=== PATIENT | female | born 1960 | race Caucasian/White ===

== ENCOUNTER 2021-11-15 18:06 | Emergency (ER) | payer OTHER ==
--- OUTSIDE RECORDS SUMMARY | 2021-11-15 18:10 | XMS REPORT | Continuity of Care Document ---
:[address] [facility] t Address [address] [place] [address] Dr. Valenzuela [address] [place] [address] Care Team Providers Name Role Phone Fadumo Mathias Attending Clinician Unavailable Amanda Knight Attending Clinician Unavailable Samia Calderon Admitting Clinician Unavailable Physician, Primary or Family Admitting Clinician Unavailabl e UNDEFINED Admitting Clinician Unavailable Payers Payer Name Policy Type Policy Number Effective Date Expiration Date S ource Advance Directives Directive Decision Effective Date Termination Date Comments Sour ce Yes N/A [facility] Problems Condition Condition Condition Status Onset Resolution Last Treating Co mments Source Name Details Category Date Date Treatment Clinician Date Encounter Encounter [id number] Active 2020-05-04 for for 05-04 09:12:48 observatio observatio 00:00: n for n for 00 other other suspected suspected diseases diseases and and conditions conditions ruled out ruled out (Z03.89)On set: 0 Allergies, Adverse Reactions, Alerts Allergy Allergy Status Severity Reaction(s) Onset Inactive Treating Comm ents Source Name Type Date Date Clinician celecoxi DA Active [place] [facility] 08-[facility] 00:00: [address] naproxen DA Active [place] [facility] 08-17 00:00: [address] No Known DA Active [facility] Allergie 01-01 00:00: [address] aspirin Allergy Active Other Celebrex Allergy Active Other naproxen Allergy Active Other ibuprofe Allergy Active N & V n Social History Smoking Status Start Date Stop Date Source Tobacco smoking consumption [facility] unknown Medications Ordered Filled Start Stop Current Ordering Indication Dosage Frequency Signature Comments Components Source Medication Medication Date Date Medication? Clinician (SIG) Name Name Melatonin* 2019- Yes [id number] 3mg Melatonin* 05-06190 ; 3 mg 10:41: PO/By 00 mouth for sleep Take three (3) pills at bedtimeSta rt: 0Ordered: 0Shaan Suttonent DULoxetine* 2020-0 Yes [id number] 60mg DULoxetine 05-05190 *; 60 mg 12:20: PO/By 00 mouth for mood Take one (1) pill in the morningSta rt: 0Ordered: 0Antonia Munira Mayuricharleyamanda Prazosin* Yes [id number] 1mg Prazosin*; 05-05 1 mg PO/By 12:03: mouth for 00 nightmares Take one (1) pill at bedtimeSta rt: 0Ordered: 0Shaan Sutton ARIPiprazol 2019- Yes [id number] 5mg ARIPiprazo e* 05-05 le*; 5 mg 12:03: PO/By 00 mouth for mood Take one (1) pill in the morningSta rt: 0Ordered: 0Shaan Sutton nttoyin HydrOXYzine 2019- Yes [id number] 50mg HydrOXYzin NTE 100mg 05-05190 e; 50 mg in 24 10:51: PO PRN hours 00 qam&qhs for Anxiety NTE 100mg in 24 hours RoutineSta rt: 0Ordered: 0Shaan Sutton nttoyinComme nts: NTE 100mg in 24 hours Milk of 2020-0 Yes [id number] 30ml Milk of NTE 120 Magnesia 05-01190 Magnesia; mL in 24 14:09: 30 ml PO hours 00 PRN q4hr for Constipati on NTE 120 mL in 24 hours RoutineSta rt: 0Ordered: 0Munira Knight ments: NTE 120 mL in 24 hours Nicorette 2019- Yes [id number] 2mg Nicorette NTE 12 Gum 05-01 368692 Gum; 2 mg pieces in 14:09: PO PRN Q1H 24 hours 00 for Nicotine cravings NTE 12 pieces in 24 hours RoutineSta rt: 0Ordered: 0Munira Knight ments: NTE 12 pieces in 24 hours Flu Vaccine Yes [id number] .5ml Flu This - ADULT 05-01 [id number] Vaccine - medicatio 14:08: ADULT; 0.5 n is to 00 ml IM be Daily for administe Flu red under prevention consent This of the medication patient is to be and is administer ONLY ed under available consent of between the May through and is October ONLY (during available the flu between season). May through October (during the flu season). RoutineSta rt: 0Ordered: 0Munira Knight ments: This medication is to be administer ed under consent of the patient and is ONLY available between May through October (during the flu season). Medications No Medication Treviño rris excluded/no s County t available excluded/n Ps ychia ot tric available Ctr Procedures This patient has no known procedures. Plan of Care Planned Activity Planned Date Details Comments Source Diagnostic Test Pending 2020-05-06 10:41:00 Discharge Patient [code = DischargePatient] Diagnostic Test Pending 2020-05-05 14:13:00 Vital Signs - Routine [code = VitalSigns-Routine] Diagnostic Test Pending 2020-05-04 12:03:00 Management of Emotions [code = ManagementofEmotions] Diagnostic Test Pending 2020-05-04 12:03:00 Mgmt of Mental Illness (On Unit) [code = MgmtofMentalIllness(OnUni t)] Diagnostic Test Pending 2020-05-04 12:03:00 Spirituality [code = Spirituality] Diagnostic Test Pending 2020-05-04 12:03:00 Therapeutic Recreation [code = TherapeuticRecreation] Diagnostic Test Pending 2020-05-04 12:03:00 Substance Use Group 3B [code = RewcornejLrsTzihh2I] Diagnostic Test Pending 2020-05-01 14:29:00 Brief Individual Intervention - Adult [code = BriefIndividualInterventi on-Adult] Diagnostic Test Pending 2020-05-01 14:10:00 Special Observations [code = SpecialObservations] Diagnostic Test Pending 2020-05-01 14:08:00 Cardiac Diet/AHA (low fat/2g Na) [code = CardiacDiet/AHA(lowfat/2g Na)] Diagnostic Test Pending 2020-05-01 14:08:00 Assess and involve in group therapy [code = Assessandinvolveingroupth erapy] Encounters Start End Encounter Admission Attending Care Care Encounter Source Date/Time Date/Time Type Type Clinicians Facility Department ID 2020-04-28 Inpatient [facility]CA[facility] SWATI [id number] [facility] 21:37:00 [id number] [facility] 2021-08-17 2021-08-17 Emergency [facility] [id number] [facility] 14:48:00 18:15:00 55 [facility] 2021-08-17 2021-08-17 Emergency EM Rui Mathias [facility]CA[facility] SWATI [id number] [facility] 14:48:00 18:15:00 [id number] [facility] 2020-05-01 2020-05-06 Inpatient Queenie Knight [facility]-3[facility]-61- [id number] [facility] 13:32:00 13:13:00 [facility] Baer [facility] 2019-10-01 2019-10-01 Outpatient [facility] [id number] [facility] 00:00:00 00:00:00 Health 2019-09-27 2019-09-27 Outpatient [facility] [id number] [facility] 00:00:00 00:00:00 Health 2019-09-24 2019-09-24 Outpatient [facility] [id number] [facility] 00:00:00 00:00:00 Health 2019-08-20 2019-08-20 Outpatient [facility] [id number] [facility] 00:00:00 00:00:00 Health 2019-08-13 2019-08-13 Outpatient [facility] [id number] [facility] 00:00:00 00:00:00 Health 2019-08-13 2019-08-13 Outpatient [facility] [id number] [place] 00:00:00 00:00:00 [facility] 2019-08-02 2019-08-02 Outpatient [facility] [id number] [place] 00:00:00 00:00:00 [facility] 2019-07-23 2019-07-23 Emergency E [facility] 7501 [facility] 05:55:00 05:55:00 2019-07-04 2019-07-04 Outpatient [facility] [id number] [place] 00:00:00 00:00:00 [facility] 2019-07-02 2019-07-02 Outpatient [facility] [id number] [place] 00:00:00 00:00:00 [facility] 2019-05-22 2019-05-22 Outpatient [facility] [id number] [place] 00:00:00 00:00:00 [facility] 2019-05-15 2019-05-15 Outpatient [facility] [id number] [place] 11:31:28 11:31:28 Health 2019-05-15 2019-05-15 Outpatient [facility] [id number] [place] 10:38:26 10:38:26 Health 2019-05-15 2019-05-15 Outpatient [facility] [id number] [place] 00:00:00 00:00:00 [facility] 2019-04-24 2019-04-24 Outpatient [facility] [id number] [place] 00:00:00 00:00:00 [facility] 2019-03-22 2019-03-22 Outpatient [facility] [id number] [place] 00:00:00 00:00:00 [facility] 2019-03-21 2019-03-21 Outpatient [facility] [id number] [place] 00:00:00 00:00:00 [facility] 2019-03-13 2019-03-13 Outpatient [facility] [id number] [place] 10:01:52 10:01:52 [facility] 2019-02-22 2019-02-22 Outpatient [facility] [id number] [place] 00:00:00 00:00:00 [facility] 2019-01-31 2019-01-31 Outpatient [facility] [id number] [place] 00:00:00 00:00:00 Health 2019-01-17 2019-01-17 Outpatient [facility] [id number] [place] 00:00:00 00:00:00 [facility] 2019-01-04 2019-01-04 Outpatient [facility] [id number] [place] 00:00:00 00:00:00 [facility] 2018-12-31 2018-12-31 Outpatient [facility] [id number] [place] 00:00:00 00:00:00 [facility] 2018-12-06 2018-12-06 Outpatient [facility] [id number] [place] 00:00:00 00:00:00 [facility] 2018-11-29 2018-11-29 Outpatient [facility] [id number] [place] 11:12:14 11:12:14 [facility] 2018-11-12 2018-11-12 Outpatient [facility] [id number] [place] 00:00:00 00:00:00 [facility] 2018-11-06 2018-11-06 Outpatient [facility] [id number] [place] 00:00:00 00:00:00 [facility] 2018-10-31 2018-10-31 Outpatient [facility] [id number] [place] 12:09:46 12:09:46 [facility] 2018-10-30 2018-10-30 Outpatient [facility] [id number] [place] 10:28:45 10:28:45 [facility] 2018-10-29 2018-10-29 Outpatient [facility] [id number] [place] 00:00:00 00:00:00 [facility] 2018-10-19 2018-10-19 Outpatient [facility] [id number] [place] 00:00:00 00:00:00 [facility] 2018-10-17 2018-10-17 Outpatient [facility] [id number] [place] 14:01:40 14:01:40 [facility] 2018-10-10 2018-10-10 Outpatient [facility] [id number] [place] 00:00:00 00:00:00 [facility] 2018-10-02 2018-10-02 Outpatient [facility] [id number] [place] 08:52:09 08:52:09 [facility] 2018-10-01 2018-10-01 Outpatient [facility] [id number] [place] 00:00:00 00:00:00 [facility] 2018-09-27 2018-09-27 Outpatient [facility] [id number] [place] 00:00:00 00:00:00 [facility] 2018-09-27 2018-09-27 Outpatient [facility] [id number] [place] 00:00:00 00:00:00 [facility] 2018-09-19 2018-09-19 Outpatient [facility] [id number] [place] 13:42:16 13:42:16 Health 2018-09-19 2018-09-19 Outpatient [facility] [id number] [place] 13:10:44 13:10:44 Health 2018-09-17 2018-09-17 Outpatient [facility] [id number] [place] 11:10:13 11:10:13 Health 2018-09-17 2018-09-17 Outpatient [facility] [id number] [facility] 08:47:07 08:47:07 Health 2018-09-17 2018-09-17 Outpatient [facility] [id number] [facility] 00:00:00 00:00:00 Health 2018-08-28 2018-08-28 Outpatient [facility] [id number] Phil [facility] 00:00:00 00:00:00 Health 2018-08-15 2018-08-15 Outpatient [facility] [id number] [facility] 15:06:29 15:06:29 Health 2018-08-09 2018-08-09 Outpatient [facility] [id number] [facility] 00:00:00 00:00:00 Health Results Test Description Test Time Test Comments Results Result Comments Source UA RFLX MICR CULT IF INDICATED 2021-08-17 18:31:00 Test Item Value Reference Range Interpretation Comme nts UA COLOR (test code = COLU) YELLOW YELLOW UA APPEARANCE (test code = APPU) CLEAR CLEAR UA GLUCOSE DIPSTICK (test code = DGLUU) NORMAL MG/DL NORMAL UA BILIRUBIN DIPSTICK (test code = BILU) NEGATIVE MG/DL NEGATIVE UA KETONE DIPSTICK (test code = KETU) NEGATIVE MG/DL NEGATIVE UA SPECIFIC GRAVITY (test code = SGU) 1.015 1.003-1.030 N UA BLOOD DIPSTICK (test code = MAYELIN) NEGATIVE Emmanuel/mm3 NEGATIVE UA PH DIPSTICK (test code = JAJA) 6.5 5.0-9.0 N UA PROTEIN DIPSTICK (test code = PROU) NEGATIVE MG/DL NEGATIVE UA UROBILINIOGEN DIPSTICK (test code = URO) NORMAL MG/DL NORMAL UA NITRITE DIPSTICK (test code = NNEKA) NEGATIVE NEGATIVE UA LEUKOCYTE ESTERASE DIPSTICK (test code = LEUU) TRACE /mm3 NEGA TIVE A UA CULTURE NEEDED? (test code = UACULT) NO, WBC<10 Criteria Culture Chk Indication for culture: Dysuria/FrequencyUA [id number] 18:31:00 Test Item Value Reference Range Interpretation Comments UA RBC (test code = RBCU) NONE RBC/HPF 0-3 UA WBC (test code = XWBCU) 3-5 WBC/HPF 0-5 UA EPITHELIAL CELLS (test code = RARE EPI/HPF FEW EPIU) UA BACTERIA (test code = XBACU) FEW NONE Indication for culture: Dysuria/FrequencyCOVID 19 INHOUSE [id number] 18:16:00 Test Item Value Reference Range Interpretation Comments COVID 19 INHOUSE NEGATIVE Negative "Negative r esults from AG (test code = patients wit h symptom onset [id number]) beyondfive days , should be treated as pres umptive, andconfirmation with a molecular assay , if necessary forpa tient management may be performed. Negative result s do notrule out COVID-19 an d should not be used as the sole basisfor treatment or pa tient management deci sions, includinginfect ion control decisions. Nega tive results should beconsid ered in the context of a pa tients recent exposures,histo ry, and the presence of cli nical signs and symptomscon sistent with COVID-19.This t est detects both viable and non-viable SARS-CoV and SA RS CoV-2.Test performance dep endson the amount of virus (antigen) in the sample." COMPREHENSIVE METABOLIC [id number] 18:14:00 Test Item Value Reference Range Interpretation Comments SODIUM (test code 139 MMOL/L 137-145 N = NA) POTASSIUM (test 4.0 MMOL/L 3.5-5.1 N code = K) CHLORIDE (test 104 MMOL/L 98-107 N code = CL) CARBON DIOXIDE 30 MMOL/L 22-30 N (test code = CO2) ANION GAP (test 9 MMOL/L 14-24 L code = GAP) GLUCOSE (test 112 MG/DL 74-106 H code = GLU) BLOOD UREA 11 MG/DL 7-17 N NITROGEN (test code = BUN) GLOMERULAR > 60 Reporting units : FILTRATION RATE ml/min/1.73 m2 (Modified (test code = GFR) MDRD Formu la)Reference Range: > or = 6 0 ml/min/1.73 m2 CREATININE (test 0.70 MG/DL 0.52-1.04 N code = CREAT) TOTAL PROTEIN 7.8 G/DL 6.3-8.2 N [facility] Clinical Diagnostic (test code = has made us otoniel re of PROT) newinformation regarding the potential i nterference ofEltrombopag (a bone marrow stimulan t used to treatthrombocyt onmenia and aplastic anemia ) with specific assays on the Vitros 5600 of which Total Protein is one of thoseassays per formed in our lab.Liene pavel testing perform ed at [facility] determined that Eltrombopag does interfere with Vitros Total Protein asfollowsEltrom bopag Interference fo r Vitros Product Total Protein:======= Eltrombopag Max Observed A vg. BiasConcentrati on Concentration Concentration== ==== 2.5 mg/dl 6.0 g/dl +0.41 +0.34 3.5 mg/dl 6.0 g/dl +0.50 +0.45 5 mg/dl 6.0 g/dl +0.73 +0.65 2.5 mg/dl 8.0 g/dl +0.44 +0.41 3.5 mg/dl 8.0 g/dl +0.55 +0.52 5 mg/dl 8.0 g/dl +0.86 +0.77 ALBUMIN (test 4.2 G/DL 3.5-5.0 N code = ALB) CALCIUM (test 9.2 MG/DL 8.4-10.2 N code = CA) BILIRUBIN TOTAL 0.3 MG/DL 0.2-1.3 N Eltrombopag Interference (test code = for Vitros Prod uct TBil, BILT) BuBc: Assa y Eltrombopag Analyte/ Max Observed Avg. Bias Concentrati on Concentration Concentration== ====TBil 7mg/dl T William/ 1.2mg/dl +0.23 mg.dl +0.20mg/dlBuBc 3.5mg/dl Bu/0.8mg/dl +0.25mg/dl +0 .24mg/dlBuBc 7 mg/dl Bu/14.2mg/dl +0.38mg/dl +0.25mg/dlBuBc 5mg/dl Bc/0mg/dl +0.25mg/dl +0 .15mg/dlBuBc 3.5mg/dl Bc/2.8mg/dl +0.25mg/dl +0.23mg/dl SGOT/AST (test 74 UNITS/L 14-36 H code = AST) SGPT/ALT (test 59 UNITS/L 0-34 H code = ALT) ALKALINE 90 UNITS/L 38-126 N PHOSPHATASE (test code = ALKP) [id number] 18:14:00 Test Item Value Reference Range Interpretation Comments LIPASE (test code = LIP) 91 UNITS/L 23-300 N CBC W/AUTO [id number] 17:58:00 Test Item Value Reference Range Interpretation Comments WHITE BLOOD CELL (test code = 5.2 K/MM3 3.8-9.8 N WBC) RED BLOOD CELL (test code = 4.58 M/MM3 3.58-4.97 N RBC) HEMOGLOBIN (test code = HGB) 13.2 G/DL 11.2-14.9 N HEMATOCRIT (test code = HCT) 40.2 % 33.2-43.5 N MEAN CELL VOLUME (test code = 88 fL 80.7-99.1 N MCV) MEAN CELL HGB (test code = MCH) 28.8 pg 27.0-34.1 N MEAN CELL HGB CONCETRATION 32.8 % 32.2-35.7 N (test code = MCHC) RED CELL DISTRIBUTION WIDTH 13.2 % 12.1-15.2 N (test code = RDW) PLATELET COUNT (test code = 220 K/MM3 129-368 N PLT) MEAN PLATELET VOLUME (test code 8.5 fl 7.4-10.4 N = MPV) NEUTROPHIL % (test code = NT%) 65.5 % 43-75 N IMMATURE GRANULOCYTE % (test 0.4 % 0.0-2.0 N code = IG%) LYMPHOCYTE % (test code = LY%) 18.1 % 14-44 N MONOCYTE % (test code = MO%) 12.5 % 4-13 N EOSINOPHIL % (test code = EO%) 2.9 % 0-6 N BASOPHIL % (test code = BA%) 0.6 % 0-2 N NUCLEATED RBC % (test code = 0.0 % 0-1.0 N NRBC%) NEUTROPHIL # (test code = NT#) 3.39 K/mm3 2.0-7.6 N IMMATURE GRANULOCYTE # (test 0.02 x10 3/uL 0-0.03 N code = IG#) LYMPHOCYTE # (test code = LY#) 0.94 K/mm3 1.0-3.8 L MONOCYTE # (test code = MO#) 0.65 K/mm3 0.1-0.8 N EOSINOPHIL # (test code = EO#) 0.15 K/mm3 0.0-0.2 N BASOPHIL # (test code = BA#) 0.03 K/mm3 0.0-0.2 N NUCLEATED RBC # (test code = 0.00 K/mm3 0.0-0.1 N NRBC#) - CT ABD PELVIS W/O [id number] 17:42:00 [facility] 1960 Sex: F Patient Name: CAROLAVANESSA Unit No: [id number] EXAMS: CPT CODE: [id number] CT ABD PELVIS W/O CONT 61455 EXAM: - CT ABD PELVIS W/O CONT INDICATION: back pain "kidney pain" H62 TECHNIQUE: CT of the abdomen and pelvis was performed with no intravenous contrast. All CT scans are performed using radiation dose reduction technique. Technical factors are evaluated and adjusted to insure appropriate moderation of exposure. Automated dose management technology is applied to adjust the radiation dose to minimize exposure while achieving a diagnostic quality image. FINDINGS: Statements: Lack of intravenous contrast diminishes sensitivity for evaluation of abdominopelvic organs and vasculature. Visualized chest: No significant abnormality seen. Hepatobiliary: Suspect cirrhosis. Gallbladder appears unremarkable. No intrahepatic or extrahepatic biliary dilatation is seen. Pancreas: Appears unremarkable. Spleen: Appears unremarkable. Adrenal glands: Appear unremarkable. Kidneys: In the right kidney there are 2 calculi noted at the upper and lower pole measuring up to 2 mm in size. In the left kidney there are 2 calculi noted the upper pole measuring up to 2 mm in size. No hydronephrosis seen bilaterally. Gastrointestinal: Appendix: Is seen on series2, image88. It appears unremarkable. Bowel: No bowel obstruction or ileus seen. Vascular: Aorta does not appear aneurysmal. Lymph nodes: No enlarged lymph nodes seen. Peritoneum: No ascites or free air is seen. Genitourinary:Urinar y bladder appears to be mildly distended. Soft tissues:Small fat- containing umbilical hernia. Bones:No acute or destructive osseous process seen. There is 2 mm anterolisthesis of L3 on L4. Severe bilateral facet arthropathy noted at this level. Moderate to severe facet arthropathy also seen at L2-L3. Multilevel mild to moderate disc degenerative changes. [facility] NAME: CAROLAVANESSA Mojica [address] PHYS: BENAL. [place] [address] : 1960 AGE: 61 SEX: F LOC: NohemiDANILELE PHONE #: [phone] EXAM DATE: 08/17/2021 STATUS: REG ER FAX #: [phone] RAD #: D/C DT PAGE 1 Signed Report (CONTINUED) Patient Name: VANESSA SRIVASTAVA Galina Unit No: [id number] EXAMS: CPT CODE: [id number] CT ABD PELVIS W/O CONT 30563 <Continued> IMPRESSION: Bilateral nephrolithiasis. No hydronephrosis seen. No free air, bowel obstruction, ileus or fluid collection seen. Suspect cirrhosis. There is 2 mm anterolisthesis of L3 on L4. Advanced lumbar spine degenerative arthropathy as noted in the findings.Please refer to the findings section for additional details. at 1742 Reported and signed by: Mariusz Espinal MD CC: Rui Mathias MD Technologist: Josiah Rutledge, RT(R); [facility] CTDI: DLP: Trnscrpt: 08/17/2021 (0732) [email or web address] [facility] NAME: VANESSA SRIVASTAVA [id number] PHYS: [place] [address] : 1960 AGE: 61 SEX: F LOC: Med[facility]asts PHONE #: [phone] EXAM DATE: 08/17/2021 STATUS: REG ER FAX #: [phone] RAD #: D/C DT PAGE 2 Signed Report Patient Name: VANESSA SRIVASTAVA Unit No: [id number] EXAMS: CPT CODE: [id number] CT ABD PELVISW/O CONT 51767 <Continued> Orig Print D/T: S: 08/17/2021 (5515) [facility] NAME: VANESSA SRIVASTAVA [id number] PHYS: [place] [address] : 1960 AGE: 61 SEX: F LOC: [facility] PHONE #: [phone] EXAM DATE: 08/17/2021 STATUS: REG ER FAX #: [phone] RAD #: D/C DT PAGE 3 Signed Report- CT HEAD/BRAIN W/O CONT 2021-08-17 17:40:00 [facility] : 1960 Sex: F Patient Name: VANESSA SRIVASTAVA Unit No: [id number] EXAMS: CPT CODE: [id number] CT HEAD/BRAIN W/O CONT 37793 Exam: CT of the brain without contrast. History: Headache Technique: Contiguous axial CT images were obtained from the skull base through the vertex without contrast. One or more of the following dose reduction techniques were used: Automated exposure control, adjustment of the mA and/or kV according to patient size, and/or utilization of iterative reconstruction technique. Comparison: 08/04/2013 Location: H19 Findings: The ventricles and sulci are ageappropriate. The basal cisterns are patent. There is no mass effect or midline s hift. There is no evidence for acute territorial infarction. There is no acute intracranial hemorrhage. There are no extra-axial fluid collections. There is minimal mucosal disease within the bilateral ethmoid sinuses. The mastoid air cells appear well aerated. Impression: No CT evidence of an acute intracranial abnormality. at 1740 Reported and signed by: Jamie Cota MD CC: Rui Mathias MD Technologist: Josiah Weaver, RT(R); [facility] CTDI: DLP: Trnscrpt: 08/17/2021 (1740) [email or web address] [facility] NAME: VANESSA SRIVASTAVA [address] PHYS: BENAL. [place] [address] : 1960 AGE: 61 SEX: F LOC: JASKARAN PHONE #: [phone] EXAM DATE: 08/17/2021 STATUS: REG ER FAX #: [phone] RAD #: D/C DT PAGE 1 Signed Report Patient Name: VANESSA SRIVASTAVA Unit No: [id number] EXAMS: CPT CODE: [id number] CT HEAD/BRAIN W/O CONT 76125 <Continued> Orig Print D/T:S: 08/17/2021 (1743) [facility] NAME: VANESSA SRIVASTAVA [address] PHYS: BENYUKO.Marina [place] [address] : 1960 AGE: 61 SEX: F LOC: JASKARAN PHONE #: [phone] EXAM DATE: 08/17/2021 STATUS: REG ER FAX #: [phone] RAD #: D/C DT PAGE 2 Signed ReportAcute Hepatitis [id number] 07:16:00 Test Item Value Reference Range Interpretation Comments zzzHep A Antibody, Negative IgM (test code = zzzHepAAntibody,IgM ) HBsAg Screen (test Negative code = HBsAgScreen) zzzHep B Core Negative Antibody,IgM (test code = zzzHepBCoreAntibody ,IgM) Hep C Virus Ab >11.0 Negative: < 0.8 (728477) (test code = HepCVirusAb(352787) Indeterminate: 0.8 - 0.9 ) Positive: > 0.9 . The CDC recommends that a positive HCV antibody result be followed up with a HCV Nucleic Acid Amplification test (511204). Thyroid Panel with [id number] 15:37:00 Test Item Value Reference Range Interpretation Comments Thyroxine (test code = 9.3 ug/dL Thyroxine) T3 Uptake (test code = 23 % N1Vmqali) Free Thyroxine Index (test 2.1 code = FreeThyroxineIndex) TSH (726092) (test code = 3.700 {uIU/mL} TSH(783772)) Lipid [id number] 15:37:00 Test Item Value Reference Range Interpretation Comments zzzCholesterol, Total (test code = 162 mg/dL zzzCholesterol,Total) Triglycerides (test code = 61 mg/dL Triglycerides) zzzHDL Cholesterol (test code = 88 mg/dL zzzHDLCholesterol) VLDL Cholesterol Calculated (test 12 mg/dL code = VLDLCholesterolCalculated) LDL Cholesterol KIRTI (NIH) (test 62 mg/dL code = LDLCholesterolCAL([facility])) Comprehensive Metabolic [id number] 15:37:00 Test Item Value Reference Range Interpretation Comments Glucose,Serum (test code = 84 mg/dL Glucose,Serum) BUN (test code = BUN) 15 mg/dL Creatinine,Serum (test code = 0.75 mg/dL Creatinine,Serum) eGFR If NonAfrican Am 87 mL/min/1.73 (726731) (test code = eGFRIfNonAfricanAm(675948)) eGFR If Am (869555) 100 mL/min/1.73 (test code = eGFRIfAfricanAm(412702)) BUN/Creat Ratio (test code = 20 BUN/CreatRatio) Sodium (test code = Sodium) 139 mmol/L Potassium (test code = 4.7 mmol/L Potassium) Chloride (test code = 99 mmol/L Chloride) zzzCO2 (test code = zzzCO2) 26 mmol/L Calcium (test code = Calcium) 9.5 mg/dL Protein, Total (test code = 7.0 g/dL Protein,Total) Albumin (test code = Albumin) 4.3 g/dL Globulin, Total (test code = 2.7 g/dL Globulin,Total) A/G Ratio (test code = 1.6 A/GRatio) Bilirubin, Total (test code = 0.4 mg/dL Bilirubin,Total) Alkaline Phosphatase (test 79 {IU/L} code = AlkalinePhosphatase) AST (test code = AST) 44 {IU/L} ALT (test code = ALT) 32 {IU/L} [id number] 09:45:00 Test Item Value Reference Range Interpretation Comments ALCOHOL (test code = ALC) < 10.0 MG/DL <10 COVID 19 Asymptomatic IH [id number] 23:31:00 Test Item Value Reference Range Interpretation Comments COVID 19 NEGATIVE Negative "Negative resul ts from Asymptomatic IH AG patients with symptom (test code = onset beyondfiv e days, COVNONPUIAG) should be selma shelly as presumptive, andconfirmation with a molecular assay , if necessary forpa tient management may be performed. Nega tive results do notr ule out COVID-19 and sh ould not be used as the sole basisfor treatm ent or patient managem ent decisions, includinginfect ion control decisio ns. Negative result s should beconsidered in the context of a pa tients recent exposure s,history, and the presenc e of clinical signs and symptomsconsist ent with COVID-19.This t est detects both vi able andnon-viable S ARS-CoV and SARS CoV-2. Test performance dep endson the amount of virus (antigen) in the sample." CBC W/O [id number] 23:30:00 Test Item Value Reference Range Interpretation Comments WHITE BLOOD CELL (test code = 6.4 K/MM3 3.8-9.8 N WBC) RED BLOOD CELL (test code = 4.50 M/MM3 3.58-4.97 N RBC) HEMOGLOBIN (test code = HGB) 13.0 G/DL 11.2-14.9 N HEMATOCRIT (test code = HCT) 39.1 % 33.2-43.5 N MEAN CELL VOLUME (test code = 87 fL 80.7-99.1 N MCV) MEAN CELL HGB (test code = MCH) 28.9 pg 27.0-34.1 N MEAN CELL HGB CONCETRATION 33.2 % 32.2-35.7 N (test code = MCHC) RED CELL DISTRIBUTION WIDTH 13.3 % 12.1-15.2 N (test code = RDW) PLATELET COUNT (test code = 267 K/MM3 129-368 N PLT) NEUTROPHIL # (test code = NT#) 2.00 K/mm3 2.0-7.6 N IMMATURE GRANULOCYTE # (test 0.02 x10 3/uL 0-0.03 N code = IG#) LYMPHOCYTE # (test code = LY#) 3.32 K/mm3 1.0-3.8 N MONOCYTE # (test code = MO#) 0.53 K/mm3 0.1-0.8 N EOSINOPHIL # (test code = EO#) 0.48 K/mm3 0.0-0.2 H BASOPHIL # (test code = BA#) 0.09 K/mm3 0.0-0.2 N NUCLEATED RBC # (test code = 0.00 K/mm3 0.0-0.1 N NRBC#) WBC [id number] 23:30:00 Test Item Value Reference Range Interpretation Comments RBC MORPHOLOGY REQUIRED (test code NORMAL = RBCM) TOTAL CELLS COUNTED (test code = 130 #CELLS TCC) SEGMENTED NEUTROPHILS (test code = 31.8 % 36.2-73.8 L SEG) BAND NEUTROPHIL (test code = BAND) 0.0 % 0-10 N LYMPHOCYTE (test code = LYMPH) 35.7 % 12.9-45.1 N ATYPICAL LYMPH (test code = 7.7 % 0-0 H ALYMPH) MONOCYTE (test code = MON) 10.9 % 0-11 N EOSINOPHIL (test code = EOS) 12.4 % 1-7 H BASOPHIL (test code = BASO) 1.5 % 0-2 N PLATELET ESTIMATE (test code = ADEQUATE ADEQUATE PLTEST) PLATELET MORPHOLOGY (test code = NORMAL NORMAL PLTMORPH) URINALYSIS [id number] 23:08:00 Test Item Value Reference Range Interpretation Comments UA COLOR (test code = YELLOW YELLOW COLU) UA APPEARANCE (test code CLEAR CLEAR = APPU) UA GLUCOSE DIPSTICK (test NORMAL MG/DL NORMAL code = DGLUU) UA BILIRUBIN DIPSTICK NEGATIVE MG/DL NEGATIVE (test code = BILU) UA KETONE DIPSTICK (test NEGATIVE MG/DL NEGATIVE code = KETU) UA SPECIFIC GRAVITY (test 1.005 1.003-1.030 N code = SGU) UA BLOOD DIPSTICK (test NEGATIVE Emmanuel/mm3 NEGATIVE code = MAYELIN) UA PH DIPSTICK (test code 6.5 5.0-9.0 N = JAJA) UA PROTEIN DIPSTICK (test NEGATIVE MG/DL NEGATIVE code = PROU) UA UROBILINIOGEN DIPSTICK NORMAL MG/DL NORMAL (test code = URO) UA NITRITE DIPSTICK (test NEGATIVE NEGATIVE code = NNEKA) UA LEUKOCYTE ESTERASE NEGATIVE /mm3 NEGATIVE DIPSTICK (test code = LEUU) UA CULTURE NEEDED? (test NEGATIVE, NO CULTURE Culture Chk code = UACULT) Criteria SOURCE OF URINE: CLEAN CATCHDRUGS OF ABUSE SCREEN [id number] 23:08:00 Test Item Value Reference Range Interpretation Comments UR COCAINE (test code = NEGATIVE NEGATIVE Cut off Value: 300 COCAU) ng/mL UR CANNABINOIDS (THC) NEGATIVE NEGATIVE Cut of f Value: 50 (test code = CANU) ng/mL UR AMPHETAMINE (test code NEGATIVE NEGATIVE Cu t off Value: 1000 = AMPHU) ng/mL UR BARBITURATE QUAL (test NEGATIVE NEGATIVE Cu t off Value: 200 code = BARBQLU) ng/mL UR BENZODIAZEPINE (test NEGATIVE NEGATIVE Cut off Value: 200 code = BENZU) ng/mL UR OPIATES QUAL (test code NEGATIVE NEGATIVE C ut off Value: 300 = OPIAQLU) ng/mL UR PHENCYCLIDINE (PCP) NEGATIVE NEGATIVE Cut o ff Value: 25 (test code = PHENCU) ng/mL SOURCE OF URINE: CLEAN CATCHURINALYSIS [id number] 23:07:00 Test Item Value Reference Range Interpretation Comments UA COLOR (test code = YELLOW YELLOW COLU) UA APPEARANCE (test code CLEAR CLEAR = APPU) UA GLUCOSE DIPSTICK (test NORMAL MG/DL NORMAL code = DGLUU) UA BILIRUBIN DIPSTICK NEGATIVE MG/DL NEGATIVE (test code = BILU) UA KETONE DIPSTICK (test NEGATIVE MG/DL NEGATIVE code = KETU) UA SPECIFIC GRAVITY (test 1.005 1.003-1.030 N code = SGU) UA BLOOD DIPSTICK (test NEGATIVE Emmanuel/mm3 NEGATIVE code = MAYELIN) UA PH DIPSTICK (test code 6.5 5.0-9.0 N = JAJA) UA PROTEIN DIPSTICK (test NEGATIVE MG/DL NEGATIVE code = PROU) UA UROBILINIOGEN DIPSTICK NORMAL MG/DL NORMAL (test code = URO) UA NITRITE DIPSTICK (test NEGATIVE NEGATIVE code = NNEKA) UA LEUKOCYTE ESTERASE NEGATIVE /mm3 NEGATIVE DIPSTICK (test code = LEUU) UA CULTURE NEEDED? (test NEGATIVE, NO CULTURE Culture Chk code = UACULT) Criteria SOURCE OF URINE: CLEAN CATCHDRUGS OF ABUSE SCREEN [id number] 23:07:00 Test Item Value Reference Range Interpretation Comments UR COCAINE (test code = NEGATIVE NEGATIVE Cut off Value: 300 COCAU) ng/mL UR CANNABINOIDS (THC) NEGATIVE NEGATIVE Cut of f Value: 50 (test code = CANU) ng/mL UR AMPHETAMINE (test code NEGATIVE NEGATIVE Cu t off Value: 1000 = AMPHU) ng/mL UR BARBITURATE QUAL (test NEGATIVE NEGATIVE Cu t off Value: 200 code = BARBQLU) ng/mL UR BENZODIAZEPINE (test NEGATIVE NEGATIVE Cut off Value: 200 code = BENZU) ng/mL UR OPIATES QUAL (test code NEGATIVE NEGATIVE C ut off Value: 300 = OPIAQLU) ng/mL UR PHENCYCLIDINE (PCP) NEGATIVE (test code = PHENCU) SOURCE OF URINE: CLEAN CATCHURINALYSIS [id number] 23:06:00 Test Item Value Reference Range Interpretation Comments UA COLOR (test code = YELLOW YELLOW COLU) UA APPEARANCE (test code CLEAR CLEAR = APPU) UA GLUCOSE DIPSTICK (test NORMAL MG/DL NORMAL code = DGLUU) UA BILIRUBIN DIPSTICK NEGATIVE MG/DL NEGATIVE (test code = BILU) UA KETONE DIPSTICK (test NEGATIVE MG/DL NEGATIVE code = KETU) UA SPECIFIC GRAVITY (test 1.005 1.003-1.030 N code = SGU) UA BLOOD DIPSTICK (test NEGATIVE Emmanuel/mm3 NEGATIVE code = MAYELIN) UA PH DIPSTICK (test code 6.5 5.0-9.0 N = JAJA) UA PROTEIN DIPSTICK (test NEGATIVE MG/DL NEGATIVE code = PROU) UA UROBILINIOGEN DIPSTICK NORMAL MG/DL NORMAL (test code = URO) UA NITRITE DIPSTICK (test NEGATIVE NEGATIVE code = NNEKA) UA LEUKOCYTE ESTERASE NEGATIVE /mm3 NEGATIVE DIPSTICK (test code = LEUU) UA CULTURE NEEDED? (test NEGATIVE, NO CULTURE Culture Chk code = UACULT) Criteria SOURCE OF URINE: CLEAN CATCHDRUGS OF ABUSE SCREEN [id number] 23:06:00 Test Item Value Reference Range Interpretation Comments UR COCAINE (test code = NEGATIVE NEGATIVE Cut off Value: 300 COCAU) ng/mL UR CANNABINOIDS (THC) NEGATIVE NEGATIVE Cut of f Value: 50 (test code = CANU) ng/mL UR AMPHETAMINE (test code NEGATIVE NEGATIVE Cu t off Value: 1000 = AMPHU) ng/mL UR BARBITURATE QUAL (test NEGATIVE NEGATIVE Cu t off Value: 200 code = BARBQLU) ng/mL UR BENZODIAZEPINE (test NEGATIVE NEGATIVE Cut off Value: 200 code = BENZU) ng/mL UR OPIATES QUAL (test code NEGATIVE = OPIAQLU) UR PHENCYCLIDINE (PCP) NEGATIVE (test code = PHENCU) SOURCE OF URINE: CLEAN CATCHURINALYSIS [id number] 23:05:00 Test Item Value Reference Range Interpretation Comments UA COLOR (test code = YELLOW YELLOW COLU) UA APPEARANCE (test code CLEAR CLEAR = APPU) UA GLUCOSE DIPSTICK (test NORMAL MG/DL NORMAL code = DGLUU) UA BILIRUBIN DIPSTICK NEGATIVE MG/DL NEGATIVE (test code = BILU) UA KETONE DIPSTICK (test NEGATIVE MG/DL NEGATIVE code = KETU) UA SPECIFIC GRAVITY (test 1.005 1.003-1.030 N code = SGU) UA BLOOD DIPSTICK (test NEGATIVE Emmanuel/mm3 NEGATIVE code = MAYELIN) UA PH DIPSTICK (test code 6.5 5.0-9.0 N = JAJA) UA PROTEIN DIPSTICK (test NEGATIVE MG/DL NEGATIVE code = PROU) UA UROBILINIOGEN DIPSTICK NORMAL MG/DL NORMAL (test code = URO) UA NITRITE DIPSTICK (test NEGATIVE NEGATIVE code = NNEKA) UA LEUKOCYTE ESTERASE NEGATIVE /mm3 NEGATIVE DIPSTICK (test code = LEUU) UA CULTURE NEEDED? (test NEGATIVE, NO CULTURE Culture Chk code = UACULT) Criteria SOURCE OF URINE: CLEAN CATCHDRUGS OF ABUSE SCREEN [id number] 23:05:00 Test Item Value Reference Range Interpretation Comments UR COCAINE (test code = NEGATIVE COCAU) UR CANNABINOIDS (THC) NEGATIVE (test code = CANU) UR AMPHETAMINE (test code NEGATIVE NEGATIVE Cu t off Value: 1000 = AMPHU) ng/mL UR BARBITURATE QUAL (test NEGATIVE NEGATIVE Cu t off Value: 200 code = BARBQLU) ng/mL UR BENZODIAZEPINE (test NEGATIVE NEGATIVE Cut off Value: 200 code = BENZU) ng/mL UR OPIATES QUAL (test code NEGATIVE = OPIAQLU) UR PHENCYCLIDINE (PCP) NEGATIVE (test code = PHENCU) SOURCE OF URINE: CLEAN CATCHURINALYSIS [id number] 23:04:00 Test Item Value Reference Range Interpretation Comments UA COLOR (test code = YELLOW YELLOW COLU) UA APPEARANCE (test code CLEAR CLEAR = APPU) UA GLUCOSE DIPSTICK (test NORMAL MG/DL NORMAL code = DGLUU) UA BILIRUBIN DIPSTICK NEGATIVE MG/DL NEGATIVE (test code = BILU) UA KETONE DIPSTICK (test NEGATIVE MG/DL NEGATIVE code = KETU) UA SPECIFIC GRAVITY (test 1.005 1.003-1.030 N code = SGU) UA BLOOD DIPSTICK (test NEGATIVE Emmanuel/mm3 NEGATIVE code = MAYELIN) UA PH DIPSTICK (test code 6.5 5.0-9.0 N = JAJA) UA PROTEIN DIPSTICK (test NEGATIVE MG/DL NEGATIVE code = PROU) UA UROBILINIOGEN DIPSTICK NORMAL MG/DL NORMAL (test code = URO) UA NITRITE DIPSTICK (test NEGATIVE NEGATIVE code = NNEKA) UA LEUKOCYTE ESTERASE NEGATIVE /mm3 NEGATIVE DIPSTICK (test code = LEUU) UA CULTURE NEEDED? (test NEGATIVE, NO CULTURE Culture Chk code = UACULT) Criteria SOURCE OF URINE: CLEAN CATCHDRUGS OF ABUSE SCREEN [id number] 23:04:00 Test Item Value Reference Range Interpretation Comments UR COCAINE (test code = NEGATIVE COCAU) UR CANNABINOIDS (THC) NEGATIVE (test code = CANU) UR AMPHETAMINE (test code NEGATIVE = AMPHU) UR BARBITURATE QUAL (test NEGATIVE NEGATIVE Cu t off Value: 200 code = BARBQLU) ng/mL UR BENZODIAZEPINE (test NEGATIVE code = BENZU) UR OPIATES QUAL (test code NEGATIVE = OPIAQLU) UR PHENCYCLIDINE (PCP) NEGATIVE (test code = PHENCU) SOURCE OF URINE: CLEAN CATCHBASIC METABOLIC [id number] 23:01:00 Test Item Value Reference Range Interpretation Comments SODIUM (test code = 142 MMOL/L 137-145 N NA) POTASSIUM (test code = 4.0 MMOL/L 3.5-5.1 N K) CHLORIDE (test code = 107 MMOL/L 98-107 N CL) CARBON DIOXIDE (test 23 MMOL/L 22-30 N code = CO2) GLUCOSE (test code = 104 MG/DL 74-106 N GLU) BLOOD UREA NITROGEN 9 MG/DL 7-17 N (test code = BUN) GLOMERULAR FILTRATION > 60 Report ing units: RATE (test code = GFR) ml/mi n/1.73 m2 (Modified MDRD Formula)Referen ce Range: > or = 6 0 ml/min/1.73 m2 CREATININE (test code 0.70 MG/DL 0.52-1.04 N = CREAT) CALCIUM (test code = 9.1 MG/DL 8.4-10.2 N CA) HEPATIC FUNCTION [id number] 23:01:00 Test Item Value Reference Range Interpretation Comments TOTAL PROTEIN (test code = PROT) 7.9 G/DL 6.3-8.2 N ALBUMIN (test code = ALB) 4.5 G/DL 3.5-5.0 N BILIRUBIN TOTAL (test code = BILT) 0.4 MG/DL 0.2-1.3 N BILIRUBIN DIRECT (test code = 0.0 MG/DL 0.0-0.3 N BILD) SGOT/AST (test code = AST) 75 UNITS/L 14-36 H SGPT/ALT (test code = ALT) 46 UNITS/L <35 ALKALINE PHOSPHATASE (test code = 79 UNITS/L 38-126 N ALKP) [id number] 23:01:00 Test Item Value Reference Range Interpretation Comments ALCOHOL (test code = 257.0 MG/DL <10 HH CALLED TO GRISEL Jimenez& PRICILA) READBACK ON AT 2301 BY Mya Bsutos URINALYSIS [id number] 23:00:00 Test Item Value Reference Range Interpretation Comments UA COLOR (test code = YELLOW YELLOW COLU) UA APPEARANCE (test code CLEAR CLEAR = APPU) UA GLUCOSE DIPSTICK (test NORMAL MG/DL NORMAL code = DGLUU) UA BILIRUBIN DIPSTICK NEGATIVE MG/DL NEGATIVE (test code = BILU) UA KETONE DIPSTICK (test NEGATIVE MG/DL NEGATIVE code = KETU) UA SPECIFIC GRAVITY (test 1.005 1.003-1.030 N code = SGU) UA BLOOD DIPSTICK (test NEGATIVE Emmanuel/mm3 NEGATIVE code = MAYELIN) UA PH DIPSTICK (test code 6.5 5.0-9.0 N = JAJA) UA PROTEIN DIPSTICK (test NEGATIVE MG/DL NEGATIVE code = PROU) UA UROBILINIOGEN DIPSTICK NORMAL MG/DL NORMAL (test code = URO) UA NITRITE DIPSTICK (test NEGATIVE NEGATIVE code = NNEKA) UA LEUKOCYTE ESTERASE NEGATIVE /mm3 NEGATIVE DIPSTICK (test code = LEUU) UA CULTURE NEEDED? (test NEGATIVE, NO CULTURE Culture Chk code = UACULT) Criteria SOURCE OF URINE: CLEAN CATCHDRUGS OF ABUSE SCREEN [id number] 23:00:00 Test Item Value Reference Range Interpretation Comments UR COCAINE (test code = COCAU) NEGATIVE UR CANNABINOIDS (THC) (test code = NEGATIVE CANU) UR AMPHETAMINE (test code = AMPHU) NEGATIVE UR BARBITURATE QUAL (test code = NEGATIVE BARBQLU) UR BENZODIAZEPINE (test code = BENZU) NEGATIVE UR OPIATES QUAL (test code = OPIAQLU) NEGATIVE UR PHENCYCLIDINE (PCP) (test code = NEGATIVE PHENCU) SOURCE OF URINE: CLEAN CATCHBASIC METABOLIC [id number] 22:59:00 Test Item Value Reference Range Interpretation Comments SODIUM (test code = 142 MMOL/L 137-145 N NA) POTASSIUM (test code = 4.0 MMOL/L 3.5-5.1 N K) CHLORIDE (test code = 107 MMOL/L 98-107 N CL) CARBON DIOXIDE (test 23 MMOL/L 22-30 N code = CO2) GLUCOSE (test code = 104 MG/DL 74-106 N GLU) BLOOD UREA NITROGEN 9 MG/DL 7-17 N (test code = BUN) GLOMERULAR FILTRATION > 60 Report ing units: RATE (test code = GFR) ml/mi n/1.73 m2 (Modified MDRD Formula)Referen ce Range: > or = 6 0 ml/min/1.73 m2 CREATININE (test code 0.70 MG/DL 0.52-1.04 N = CREAT) CALCIUM (test code = 9.1 MG/DL 8.4-10.2 N CA) HEPATIC FUNCTION [id number] 22:59:00 Test Item Value Reference Range Interpretation Comments TOTAL PROTEIN (test code = PROT) 7.9 G/DL 6.3-8.2 N ALBUMIN (test code = ALB) 4.5 G/DL 3.5-5.0 N BILIRUBIN TOTAL (test code = BILT) 0.4 MG/DL 0.2-1.3 N BILIRUBIN DIRECT (test code = 0.0 MG/DL 0.0-0.3 N BILD) SGOT/AST (test code = AST) 75 UNITS/L 14-36 H SGPT/ALT (test code = ALT) 46 UNITS/L <35 ALKALINE PHOSPHATASE (test code = 79 UNITS/L 38-126 N ALKP) [id number] 22:59:00 Test Item Value Reference Range Interpretation Comments ALCOHOL (test code = ALC) MG/DL <10 BASIC METABOLIC [id number] 22:58:00 Test Item Value Reference Range Interpretation Comments SODIUM (test code = 142 MMOL/L 137-145 N NA) POTASSIUM (test code = 4.0 MMOL/L 3.5-5.1 N K) CHLORIDE (test code = 107 MMOL/L 98-107 N CL) CARBON DIOXIDE (test 23 MMOL/L 22-30 N code = CO2) GLUCOSE (test code = MG/DL 74-106 GLU) BLOOD UREA NITROGEN MG/DL 7-17 (test code = BUN) GLOMERULAR FILTRATION > 60 Report ing units: RATE (test code = GFR) ml/mi n/1.73 m2 (Modified MDRD Formula)Referen ce Range: > or = 6 0 ml/min/1.73 m2 CREATININE (test code 0.70 MG/DL 0.52-1.04 N = CREAT) CALCIUM (test code = MG/DL 8.7-9.7 CA) HEPATIC FUNCTION [id number] 22:58:00 Test Item Value Reference Range Interpretation Comments TOTAL PROTEIN (test code = PROT) G/DL 6.3-8.2 ALBUMIN (test code = ALB) 4.5 G/DL 3.5-5.0 N BILIRUBIN TOTAL (test code = BILT) 0.4 MG/DL 0.2-1.3 N BILIRUBIN DIRECT (test code = BILD) 0.0 MG/DL 0.0-0.3 N SGOT/AST (test code = AST) UNITS/L 15-37 SGPT/ALT (test code = ALT) UNITS/L <35 ALKALINE PHOSPHATASE (test code = UNITS/L 38-126 ALKP) [id number] 22:58:00 Test Item Value Reference Range Interpretation Comments ALCOHOL (test code = ALC) MG/DL <10 BASIC METABOLIC [id number] 22:57:00 Test Item Value Reference Range Interpretation Comments SODIUM (test code = NA) 142 MMOL/L 137-145 N POTASSIUM (test code = K) 4.0 MMOL/L 3.5-5.1 N CHLORIDE (test code = CL) 107 MMOL/L 98-107 N CARBON DIOXIDE (test code = CO2) MMOL/L 22-30 GLUCOSE (test code = GLU) MG/DL 74-106 BLOOD UREA NITROGEN (test code = MG/DL 7-17 BUN) GLOMERULAR FILTRATION RATE (test code = GFR) CREATININE (test code = CREAT) MG/DL 0.52-1.04 CALCIUM (test code = CA) MG/DL 8.7-9.7 HEPATIC FUNCTION [id number] 22:57:00 Test Item Value Reference Range Interpretation Comments TOTAL PROTEIN (test code = PROT) G/DL 6.3-8.2 ALBUMIN (test code = ALB) 4.5 G/DL 3.5-5.0 N BILIRUBIN TOTAL (test code = BILT) MG/DL 0.2-1.3 BILIRUBIN DIRECT (test code = BILD) MG/DL 0.0-0.3 SGOT/AST (test code = AST) UNITS/L 15-37 SGPT/ALT (test code = ALT) UNITS/L <35 ALKALINE PHOSPHATASE (test code = UNITS/L 38-126 ALKP) [id number] 22:57:00 Test Item Value Reference Range Interpretation Comments ALCOHOL (test code = ALC) MG/DL <10 URINALYSIS [id number] 22:55:00 Test Item Value Reference Range Interpretation Comments UA COLOR (test code = COLU) YELLOW YELLOW UA APPEARANCE (test code = CLEAR CLEAR APPU) UA GLUCOSE DIPSTICK (test NORMAL MG/DL NORMAL code = DGLUU) UA BILIRUBIN DIPSTICK (test NEGATIVE MG/DL NEGATIVE code = BILU) UA KETONE DIPSTICK (test NEGATIVE MG/DL NEGATIVE code = KETU) UA SPECIFIC GRAVITY (test 1.005 1.003-1.030 N code = SGU) UA BLOOD DIPSTICK (test code NEGATIVE Emmanuel/mm3 NEGATIVE = MAYELIN) UA PH DIPSTICK (test code = 6.5 5.0-9.0 N JAJA) UA PROTEIN DIPSTICK (test NEGATIVE MG/DL NEGATIVE code = PROU) UA UROBILINIOGEN DIPSTICK NORMAL MG/DL NORMAL (test code = URO) UA NITRITE DIPSTICK (test NEGATIVE NEGATIVE code = NNEKA) UA LEUKOCYTE ESTERASE NEGATIVE /mm3 NEGATIVE DIPSTICK (test code = LEUU) UA CULTURE NEEDED? (test Criteria Culture Chk code = UACULT) SOURCE OF URINE: CLEAN CATCHDRUGS OF ABUSE SCREEN [id number] 22:55:00 Test Item Value Reference Range Interpretation Comments UR COCAINE (test code = COCAU) NEGATIVE UR CANNABINOIDS (THC) (test code = NEGATIVE CANU) UR AMPHETAMINE (test code = AMPHU) NEGATIVE UR BARBITURATE QUAL (test code = NEGATIVE BARBQLU) UR BENZODIAZEPINE (test code = BENZU) NEGATIVE UR OPIATES QUAL (test code = OPIAQLU) NEGATIVE UR PHENCYCLIDINE (PCP) (test code = NEGATIVE PHENCU) SOURCE OF URINE: CLEAN CATCHCBC W/O [id number] 22:53:00 Test Item Value Reference Range Interpretation Comments WHITE BLOOD CELL (test code = 6.4 K/MM3 3.8-9.8 N WBC) RED BLOOD CELL (test code = 4.50 M/MM3 3.58-4.97 N RBC) HEMOGLOBIN (test code = HGB) 13.0 G/DL 11.2-14.9 N HEMATOCRIT (test code = HCT) 39.1 % 33.2-43.5 N MEAN CELL VOLUME (test code = 87 fL 80.7-99.1 N MCV) MEAN CELL HGB (test code = MCH) 28.9 pg 27.0-34.1 N MEAN CELL HGB CONCETRATION 33.2 % 32.2-35.7 N (test code = MCHC) RED CELL DISTRIBUTION WIDTH 13.3 % 12.1-15.2 N (test code = RDW) PLATELET COUNT (test code = 267 K/MM3 129-368 N PLT) NEUTROPHIL # (test code = NT#) 2.00 K/mm3 2.0-7.6 N IMMATURE GRANULOCYTE # (test 0.02 x10 3/uL 0-0.03 N code = IG#) LYMPHOCYTE # (test code = LY#) 3.32 K/mm3 1.0-3.8 N MONOCYTE # (test code = MO#) 0.53 K/mm3 0.1-0.8 N EOSINOPHIL # (test code = EO#) 0.48 K/mm3 0.0-0.2 H BASOPHIL # (test code = BA#) 0.09 K/mm3 0.0-0.2 N NUCLEATED RBC # (test code = 0.00 K/mm3 0.0-0.1 N NRBC#) WBC [id number] 22:53:00 Test Item Value Reference Range Interpretation Comments RBC MORPHOLOGY REQUIRED (test code = RBCM) TOTAL CELLS COUNTED (test code = TCC) #CELLS SEGMENTED NEUTROPHILS (test code = % 36.2-73.8 SEG) LYMPHOCYTE (test code = LYMPH) % 12.9-45.1 MONOCYTE (test code = MON) % 0-11 PLATELET ESTIMATE (test code = ADEQUATE PLTEST) PLATELET MORPHOLOGY (test code = NORMAL PLTMORPH) CBC W/AUTO [id number] 22:53:00 Test Item Value Reference Range Interpretation Comments WHITE BLOOD CELL (test code = 6.4 K/MM3 3.8-9.8 N WBC) RED BLOOD CELL (test code = 4.50 M/MM3 3.58-4.97 N RBC) HEMOGLOBIN (test code = HGB) 13.0 G/DL 11.2-14.9 N HEMATOCRIT (test code = HCT) 39.1 % 33.2-43.5 N MEAN CELL VOLUME (test code = 87 fL 80.7-99.1 N MCV) MEAN CELL HGB (test code = MCH) 28.9 pg 27.0-34.1 N MEAN CELL HGB CONCETRATION 33.2 % 32.2-35.7 N (test code = MCHC) RED CELL DISTRIBUTION WIDTH 13.3 % 12.1-15.2 N (test code = RDW) PLATELET COUNT (test code = 267 K/MM3 129-368 N PLT) MEAN PLATELET VOLUME (test code 9.0 fl 7.4-10.4 N = MPV) NEUTROPHIL % (test code = NT%) 31.0 % 43-75 L IMMATURE GRANULOCYTE % (test 0.3 % 0.0-2.0 N code = IG%) LYMPHOCYTE % (test code = LY%) 51.6 % 14-44 H MONOCYTE % (test code = MO%) 8.2 % 4-13 N EOSINOPHIL % (test code = EO%) 7.5 % 0-6 H BASOPHIL % (test code = BA%) 1.4 % 0-2 N NUCLEATED RBC % (test code = 0.0 % 0-1.0 N NRBC%) NEUTROPHIL # (test code = NT#) 2.00 K/mm3 2.0-7.6 N IMMATURE GRANULOCYTE # (test 0.02 x10 3/uL 0-0.03 N code = IG#) LYMPHOCYTE # (test code = LY#) 3.32 K/mm3 1.0-3.8 N MONOCYTE # (test code = MO#) 0.53 K/mm3 0.1-0.8 N EOSINOPHIL # (test code = EO#) 0.48 K/mm3 0.0-0.2 H BASOPHIL # (test code = BA#) 0.09 K/mm3 0.0-0.2 N NUCLEATED RBC # (test code = 0.00 K/mm3 0.0-0.1 N NRBC#) WBC [id number] 22:53:00 Test Item Value Reference Range Interpretation Comments RBC MORPHOLOGY REQUIRED (test code = RBCM) TOTAL CELLS COUNTED (test code = TCC) #CELLS SEGMENTED NEUTROPHILS (test code = % 36.2-73.8 SEG) LYMPHOCYTE (test code = LYMPH) % 12.9-45.1 MONOCYTE (test code = MON) % 0-11 PLATELET ESTIMATE (test code = ADEQUATE PLTEST) PLATELET MORPHOLOGY (test code = NORMAL PLTMORPH)
--- NOTE | 2021-11-15 19:14 | ER ---
Nurse's Notes [facility] Name: Lucina Rosa Age: 61 yrs Sex: Female : 1960 Arrival Date: 11/15/2021 Time: 18:12 Bed Waiting Private MD: Diagnosis: ED Course: 11/15 18:12 Patient arrived in ED. ds1 18:21 Patient's name was called from ER lobby. No response. ph 18:43 Patient's name was called from ER lobby. No response. Unable to locate patient. Will ph disposition as left without being seen by a provider. Administered Medications: No medications were administered Outcome: 19:13 Patient left the ED. ph Signatures: Sadie Storey ds1 Gloria Mahmood, RN RN ph
== END 2021-11-15 19:13 | disposition left against medical advice (07) ==
LOC: ER 18:06
DX: Z02.9 Encounter for administrative examinations, unspecified (principal)

== ENCOUNTER 2021-11-15 21:32 | Emergency (ER) | payer OTHER ==
--- OUTSIDE RECORDS SUMMARY | 2021-11-15 21:36 | XMS REPORT | Continuity of Care Document ---
:1960 Author Organization [facility] t Address [address] [place] [address] [address]. Val[address] [place] [address] Care Team Providers Name Role Phone Fadumo Mathias Attending Clinician Unavailable Hugh Knight Attending Clinician Unavailable Samia Calderon Admitting Clinician Unavailable Physician, Primary or Family Admitting Clinician Unavailabl e UNDEFINED Admitting Clinician Unavailable Payers Payer Name Policy Type Policy Number Effective Date Expiration Date S ource Advance Directives Directive Decision Effective Date Termination Date Comments Sour ce Yes N/A [facility] Problems Condition Condition Condition Status Onset Resolution Last Treating Co mments Source Name Details Category Date Date Treatment Clinician Date Encounter Encounter [id number] Active 2020-05-04 for for 05-04 09:12:48 observatio observatio 00:00: n for n for 00 other other suspected suspected diseases diseases and and conditions conditions ruled out ruled out (Z03.89)On set: 0 Allergies, Adverse Reactions, Alerts Allergy Allergy Status Severity Reaction(s) Onset Inactive Treating Comm ents Source Name Type Date Date Clinician celecoxi [place] Active [place] [facility] 08-[facility] 00:[facility]: [address] naproxen DA Active [place] [facility] 08-17 00:00: [address] No Known DA Active [facility] Allergie 01-01 00:00: [address] aspirin Allergy Active Other Celebrex Allergy Active Other naproxen Allergy Active Other ibuprofe Allergy Active N & V n Social History Smoking Status Start Date Stop Date Source Tobacco smoking consumption [facility] unknown Medications Ordered Filled Start Stop Current Ordering Indication Dosage Frequency Signature Comments Components Source Medication Medication Date Date Medication? Clinician (SIG) Name Name Melatonin* 2020- Yes [id number] 3mg Melatonin* 05-06190 ; 3 mg 10:41: PO/By 00 mouth for sleep Take three (3) pills at bedtimeSta rt: 0Ordered: 0Shaan Suttonent DULoxetine* 2020-0 Yes [id number] 60mg DULoxetine 05-05190 *; 60 mg 12:20: PO/By 00 mouth for mood Take one (1) pill in the morningSta rt: 0Ordered: 0Munira monreal Prazosin* Yes [id number] 1mg Prazosin*; 05-05 1 mg PO/By 12:03: mouth for 00 nightmares Take one (1) pill at bedtimeSta rt: 0Ordered: 0Shaan Sutton ARIPiprazol 2019-0 Yes [id number] 5mg ARIPiprazo e* 05-05 le*; 5 mg 12:03: PO/By 00 mouth for mood Take one (1) pill in the morningSta rt: 0Ordered: 0Shaan Sutton HydrOXYzine 2019- Yes [id number] 50mg HydrOXYzin NTE 100mg 05-05190 e; 50 mg in 24 10:51: PO PRN hours 00 qam&qhs for Anxiety NTE 100mg in 24 hours RoutineSta rt: 0Ordered: 0Shaan Sutton nttoyinComme nts: NTE 100mg in 24 hours Milk of 2020-0 Yes [id number] 30ml Milk of NTE 120 Magnesia 05-01190 Magnesia; mL in 24 14:09: 30 ml PO hours 00 PRN q4hr for Constipati on NTE 120 mL in 24 hours RoutineSta rt: 0Ordered: 0NgAmy monrealzabeth Venukyra ments: NTE 120 mL in 24 hours Nicorette Yes [id number] 2mg Nicorette NTE 12 Gum 05-01 [id number] Gum; 2 mg pieces in 14:09: PO PRN Q1H 24 hours 00 for Nicotine cravings NTE 12 pieces in 24 hours RoutineSta rt: 0Ordered: Munira RamJoycelynkyra ments: NTE 12 pieces in 24 hours Flu Vaccine Yes [id number] .5ml Flu This - ADULT 05-01 [id number] Vaccine - medicatio 14:08: ADULT; 0.5 n is to 00 ml IM be Daily for administe Flu red under prevention consent This of the medication patient is to be and is administer ONLY ed under available consent of between the May patient through and is October ONLY (during available the flu between season). May through October (during the flu season). RoutineSta rt: 0Ordered: 0MichaelMunira monreal MayuricharleyJoycelynkyra ments: This medication is to be administer [...] 12:03:00 Substance Use Group 3B [code = [id number]] Diagnostic Test Pending 2020-05-01 14:29:00 Brief Individual [...] Facility Department ID 2020-04-28 Inpatient [facility] SWATI [id number] [facility] 21:37:00 [id number] [facility] 2021-08-17 2021-08-17 Emergency EM Rui Mathias HCA[facility] HCAWU [id number] [facility] 14:48:00 18:15:00 55 [facility] 2021-08-17 2021-08-17 Emergency EM Rui Mathias [facility]CA[facility] SWATI [id number] [facility] 14:48:00 18:15:00 [id number] [facility] 2020-05-01 2020-05-06 Inpatient Queenie Knight [facility]- 0000 [id number] [place] 13:32:00 13:13:00 Munira Baer [facility] 2019-10-01 2019-10-01 Outpatient [facility] [id number] [place] 00:00:00 00:00:00 Health 2019-09-27 2019-09-27 Outpatient [facility] [id number] [place] 00:00:00 00:00:00 Health 2019-09-24 2019-09-24 Outpatient [facility] [id number] [place] 00:00:00 00:00:00 Health 2019-08-20 2019-08-20 Outpatient [facility] [id number] [place] 00:00:00 00:00:00 Health 2019-08-13 2019-08-13 Outpatient [facility] [id number] [place] 00:00:00 00:00:00 Health 2019-08-13 2019-08-13 Outpatient [facility] [id number] [place] 00:00:00 00:00:00 [facility] 2019-08-02 2019-08-02 Outpatient [facility] [id number] [place] 00:00:00 00:00:00 [facility] 2019-07-23 2019-07-23 Emergency E [facility] 7501 [facility] 05:55:00 05:55:00 2019-07-04 2019-07-04 Outpatient [facility] [id number] [place] 00:00:00 00:00:00 Health 2019-07-02 2019-07-02 Outpatient [facility] [id number] [place] 00:00:00 00:00:00 [facility] 2019-05-22 2019-05-22 Outpatient [facility] [id number] [place] 00:00:00 00:00:00 [facility] 2019-05-15 2019-05-15 Outpatient [facility] [id number] [place] 11:31:28 11:31:28 Health 2019-05-15 2019-05-15 Outpatient [facility] [id number] [place] 10:38:26 10:38:26 Health 2019-05-15 2019-05-15 Outpatient [facility] [id number] [place] 00:00:00 00:00:00 [facility] 2019-04-24 2019-04-24 Outpatient [facility] [id number] [place] 00:00:00 00:00:00 [facility] 2019-03-22 2019-03-22 Outpatient [facility] [id number] [place] 00:00:00 00:00:00 [facility] 2019-03-21 2019-03-21 Outpatient [facility] [id number] [place] 00:00:00 00:00:00 [facility] 2019-03-13 2019-03-13 Outpatient [facility] [id number] [place] 10:01:52 10:01:52 Health 2019-02-22 2019-02-22 Outpatient [facility] [id number] [place] 00:00:00 00:00:00 [facility] 2019-01-31 2019-01-31 Outpatient [facility] [id number] [place] 00:00:00 00:00:00 Health 2019-01-17 2019-01-17 Outpatient [facility] [id number] [place] 00:00:00 00:00:00 [facility] 2019-01-04 2019-01-04 Outpatient [facility] [id number] [place] 00:00:00 00:00:00 Health 2018-12-31 2018-12-31 Outpatient [facility] [id number] [place] 00:00:00 00:00:00 [facility] 2018-12-06 2018-12-06 Outpatient [facility] [id number] [place] 00:00:00 00:00:00 [facility] 2018-11-29 2018-11-29 Outpatient [facility] [id number] [place] 11:12:14 11:12:14 [facility] 2018-11-12 2018-11-12 Outpatient [facility] [id number] [place] 00:00:00 00:00:00 [facility] 2018-11-06 2018-11-06 Outpatient [facility] [id number] [place] 00:00:00 00:00:00 [facility] 2018-10-31 2018-10-31 Outpatient [facility] [id number] [place] 12:09:46 12:09:46 [facility] 2018-10-30 2018-10-30 Outpatient [facility] [id number] [place] 10:28:45 10:28:45 [facility] 2018-10-29 2018-10-29 Outpatient [facility] [id number] [place] 00:00:00 00:00:00 [facility] 2018-10-19 2018-10-19 Outpatient [facility] [id number] [place] 00:00:00 00:00:00 [facility] 2018-10-17 2018-10-17 Outpatient [facility] [id number] [place] 14:01:40 14:01:40 [facility] 2018-10-10 2018-10-10 Outpatient [facility] [id number] [place] 00:00:00 00:00:00 [facility] 2018-10-02 2018-10-02 Outpatient [facility] [id number] [place] 08:52:09 08:52:09 [facility] 2018-10-01 2018-10-01 Outpatient [facility] [id number] [place] 00:00:00 00:00:00 [facility] 2018-09-27 2018-09-27 Outpatient [facility] [id number] [place] 00:00:00 00:00:00 [facility] 2018-09-27 2018-09-27 Outpatient [facility] [id number] [place] 00:00:00 00:00:00 [facility] 2018-09-19 2018-09-19 Outpatient [facility] [id number] [place] 13:42:16 13:42:16 Health 2018-09-19 2018-09-19 Outpatient [facility] [id number] [place] 13:10:44 13:10:44 Health 2018-09-17 2018-09-17 Outpatient [facility] [id number] [place] 11:10:13 11:10:13 [facility] 2018-09-17 2018-09-17 Outpatient [facility] [id number] [place] 08:47:07 08:47:07 Health 2018-09-17 2018-09-17 Outpatient [facility] [id number] [place] 00:00:00 00:00:00 Health 2018-08-28 2018-08-28 Outpatient [facility] [id number] [place] 00:00:00 00:00:00 Health 2018-08-15 2018-08-15 Outpatient [facility] [id number] [place] 15:06:29 15:06:29 Health 2018-08-09 2018-08-09 Outpatient [facility] [id number] [place] 00:00:00 00:00:00 Health Results Test Description Test [...] Criteria Culture Chk Indication for culture: Dysuria/FrequencyUA [id number] 18:31:00 Test Item Value Reference Range Interpretation Comments UA RBC (test code = RBCU) NONE RBC/HPF 0-3 UA WBC (test code = XWBCU) 3-5 WBC/HPF 0-5 UA EPITHELIAL CELLS (test code = RARE EPI/HPF FEW EPIU) UA BACTERIA (test code = XBACU) FEW NONE Indication for culture: Dysuria/FrequencyCOVID 19 INHOUSE [id number] 18:16:00 Test Item Value Reference Range Interpretation Comments COVID 19 INHOUSE NEGATIVE Negative "Negative r esults from AG (test code = patients wit h symptom onset [id number]) beyondfive days , should be treated as [...] virus (antigen) in the sample." COMPREHENSIVE METABOLIC [id number] 18:14:00 Test Item Value Reference Range Interpretation [...] one of thoseassays per formed in our lab.[facility] at [facility] determined that [...] 38-126 N PHOSPHATASE (test code = ALKP) [id number] 18:14:00 Test Item Value Reference Range Interpretation Comments LIPASE (test code = LIP) 91 UNITS/L 23-300 N CBC W/AUTO [id number] 17:58:00 Test Item Value Reference Range Interpretation [...] N NRBC#) - CT ABD PELVIS W/O [id number] 17:42:00 [facility] 1960 Sex: F Patient Name: VANESSA SRIVASTAVA Unit No: [id number] EXAMS: CPT CODE: [id number] CT ABD PELVIS W/O CONT 43138 EXAM: - CT ABD PELVIS W/O CONT [...] Multilevel mild to moderate disc degenerative changes. [facility] NAME: VANESSA SRIVASTAVA [id number] PHYS: BENAL.Marina - [place] [address] : 1960 AGE: 61 SEX: F LOC: ZMariselaERS PHONE #: [phone] EXAM DATE: 08/17/2021 STATUS: REG ER FAX #: [phone] RAD #: D/C DT PAGE 1 Signed Report (CONTINUED) Patient Name: VANESSA SRIVASTAVA Unit No: [id number] EXAMS: CPT CODE: [id number] CT ABD PELVIS W/O CONT 19755 <Continued> IMPRESSION: Bilateral nephrolithiasis. No hydronephrosis seen. No free air, bowel obstruction, ileus or fluid collection seen. Suspect cirrhosis. There is 2 mm anterolisthesis of L3 on L4. Advanced lumbar spine degenerative arthropathy as noted in the findings.Please refer to the findings section for additional details. at 1742 Reported and signed by: Mariusz Espinal MD CC: Rui Mathias MD Technologist: Josiah Rutledge, RT(R); [facility] CTDI: DLP: Trnscrpt: 08/17/2021 (1742) t.SDR.AH26 [facility] NAME: VANESSA SRIVASTAVA [id number] PHYS: [place] [address] : 1960 AGE: 61 SEX: F LOC: [facility] PHONE #: [phone] EXAM DATE: 08/17/2021 STATUS: REG ER FAX #: [phone] RAD #: D/C DT PAGE 2 Signed Report Patient Name: VANESSA SRIVASTAVA Unit No: [id number] EXAMS: CPT CODE: [id number] CT ABD PELVISW/O CONT 33704 <Continued> Orig Print D/T: S: 08/17/2021 (1745) [facility] NAME: VANESSA SRIVASTAVA [id number] PHYS: [place] [address] : 1960 AGE: 61 SEX: F LOC: [facility] PHONE #: [phone] EXAM DATE: 08/17/2021 STATUS: REG ER FAX #: [phone] RAD #: D/C DT PAGE 3 Signed Report- CT HEAD/BRAIN W/O CONT 2021-08-17 17:40:00 [facility] : 1960 Sex: F Patient Name: VANESSA SRIVASTAVA Unit No: [id number] EXAMS: CPT CODE: [id number] CT HEAD/BRAIN W/O CONT 39359 Exam: CT of the brain without contrast. [...] Rui Mathias MD Technologist: Josiah Weaver, RT(R); [facility] CTDI: DLP: Trnscrpt: 08/17/2021 (1740) t.SDR.RH16 [facility] NAME: VANESSA SRIVASTAVA [id number] PHYS: BENAL. - [place] [address] : 1960 AGE: 61 SEX: F LOC: JASKARAN PHONE #: [phone] EXAM DATE: 08/17/2021 STATUS: REG ER FAX #: [phone] RAD #: D/C DT PAGE 1 Signed Report Patient Name: VANESSA SRIVASTAVA Unit No: [id number] EXAMS: CPT CODE: [id number] CT HEAD/BRAIN W/O CONT 53835 <Continued> Orig Print D/T:S: 08/17/2021 (1743) [facility] NAME: VANESSA SRIVASTAVA [id number] PHYS: RUPALI.[place] [address] : 1960 AGE: 61 SEX: F LOC: TonyERS PHONE #: [phone] EXAM DATE: 08/17/2021 STATUS: REG ER FAX #: [phone] RAD #: D/C DT PAGE 2 Signed ReportAcute Hepatitis [id number] 07:16:00 Test Item Value Reference Range Interpretation Comments zzzHep A Antibody, Negative IgM (test code = zzzHepAAntibody,IgM ) HBsAg Screen (test Negative code = HBsAgScreen) zzzHep B Core Negative Antibody,IgM (test code = zzzHepBCoreAntibody ,IgM) Hep C Virus Ab >11.0 Negative: < 0.8 (748779) (test code = HepCVirusAb(408262) Indeterminate: 0.8 - 0.9 ) Positive: > 0.9 . The CDC recommends that a positive HCV antibody result be followed up with a HCV Nucleic Acid Amplification test (415667). Thyroid Panel with [id number] 15:37:00 Test Item Value Reference Range Interpretation Comments Thyroxine (test code = 9.3 ug/dL Thyroxine) T3 Uptake (test code = 23 % Q0Nbmglr) Free Thyroxine Index (test 2.1 code = FreeThyroxineIndex) TSH (915738) (test code = 3.700 {uIU/mL} TSH(445013)) Lipid [id number] 15:37:00 Test Item Value Reference Range Interpretation Comments zzzCholesterol, Total (test code = 162 mg/dL zzzCholesterol,Total) Triglycerides (test code = 61 mg/dL Triglycerides) zzzHDL Cholesterol (test code = 88 mg/dL zzzHDLCholesterol) VLDL Cholesterol Calculated (test 12 mg/dL code = VLDLCholesterolCalculated) LDL Cholesterol KIRTI (NIH) (test 62 mg/dL code = LDLCholesterolCAL(NIH)) Comprehensive Metabolic [id number] 15:37:00 Test Item Value Reference Range Interpretation Comments Glucose,Serum (test code = 84 mg/dL Glucose,Serum) BUN (test code = BUN) 15 mg/dL Creatinine,Serum (test code = 0.75 mg/dL Creatinine,Serum) eGFR If NonAfrican Am 87 mL/min/1.73 (419637) (test code = eGFRIfNonAfricanAm(698338)) eGFR If Am (188390) 100 mL/min/1.73 (test code = eGFRIfAfricanAm(086815)) BUN/Creat Ratio (test code = 20 BUN/CreatRatio) [...] ALT (test code = ALT) 32 {IU/L} [id number] 09:45:00 Test Item Value Reference Range Interpretation Comments ALCOHOL (test code = ALC) < 10.0 MG/DL <10 COVID 19 Asymptomatic IH [id number] 23:31:00 Test Item Value Reference Range Interpretation [...] virus (antigen) in the sample." CBC W/O [id number] 23:30:00 Test Item Value Reference Range Interpretation [...] = 0.00 K/mm3 0.0-0.1 N NRBC#) WBC [id number] 23:30:00 Test Item Value Reference Range Interpretation [...] (test code = NORMAL NORMAL PLTMORPH) URINALYSIS [id number] 23:08:00 Test Item Value Reference Range Interpretation [...] OF URINE: CLEAN CATCHDRUGS OF ABUSE SCREEN [id number] 23:08:00 Test Item Value Reference Range Interpretation [...] PHENCU) ng/mL SOURCE OF URINE: CLEAN CATCHURINALYSIS [id number] 23:07:00 Test Item Value Reference Range Interpretation [...] NITRITE DIPSTICK (test NEGATIVE NEGATIVE code = NNKEA) UA LEUKOCYTE ESTERASE NEGATIVE /mm3 NEGATIVE DIPSTICK (test code = LEUU) UA CULTURE NEEDED? (test NEGATIVE, NO CULTURE Culture Chk code = UACULT) Criteria SOURCE OF URINE: CLEAN CATCHDRUGS OF ABUSE SCREEN [id number] 23:07:00 Test Item Value Reference Range Interpretation [...] = PHENCU) SOURCE OF URINE: CLEAN CATCHURINALYSIS [id number] 23:06:00 Test Item Value Reference Range Interpretation [...] OF URINE: CLEAN CATCHDRUGS OF ABUSE SCREEN [id number] 23:06:00 Test Item Value Reference Range Interpretation [...] = PHENCU) SOURCE OF URINE: CLEAN CATCHURINALYSIS [id number] 23:05:00 Test Item Value Reference Range Interpretation [...] OF URINE: CLEAN CATCHDRUGS OF ABUSE SCREEN [id number] 23:05:00 Test Item Value Reference Range Interpretation [...] = PHENCU) SOURCE OF URINE: CLEAN CATCHURINALYSIS [id number] 23:04:00 Test Item Value Reference Range Interpretation [...] OF URINE: CLEAN CATCHDRUGS OF ABUSE SCREEN [id number] 23:04:00 Test Item Value Reference Range Interpretation [...] PHENCU) SOURCE OF URINE: CLEAN CATCHBASIC METABOLIC [id number] 23:01:00 Test Item Value Reference Range Interpretation [...] 9.1 MG/DL 8.4-10.2 N CA) HEPATIC FUNCTION [id number] 23:01:00 Test Item Value Reference Range Interpretation [...] code = 79 UNITS/L 38-126 N ALKP) [id number] 23:01:00 Test Item Value Reference Range Interpretation Comments ALCOHOL (test code = 257.0 MG/DL <10 HH CALLED TO GRISEL Jimenez& ALC) READBACK ON AT 2301 BY Mya Bustos URINALYSIS [id number] 23:00:00 Test Item Value Reference Range Interpretation [...] OF URINE: CLEAN CATCHDRUGS OF ABUSE SCREEN [id number] 23:00:00 Test Item Value Reference Range Interpretation [...] PHENCU) SOURCE OF URINE: CLEAN CATCHBASIC METABOLIC [id number] 22:59:00 Test Item Value Reference Range Interpretation [...] 9.1 MG/DL 8.4-10.2 N CA) HEPATIC FUNCTION [id number] 22:59:00 Test Item Value Reference Range Interpretation [...] code = 79 UNITS/L 38-126 N ALKP) [id number] 22:59:00 Test Item Value Reference Range Interpretation Comments ALCOHOL (test code = ALC) MG/DL <10 BASIC METABOLIC [id number] 22:58:00 Test Item Value Reference Range Interpretation [...] code = MG/DL 8.7-9.7 CA) HEPATIC FUNCTION [id number] 22:58:00 Test Item Value Reference Range Interpretation [...] PHOSPHATASE (test code = UNITS/L 38-126 ALKP) [id number] 22:58:00 Test Item Value Reference Range Interpretation Comments ALCOHOL (test code = ALC) MG/DL <10 BASIC METABOLIC [id number] 22:57:00 Test Item Value Reference Range Interpretation [...] code = CA) MG/DL 8.7-9.7 HEPATIC FUNCTION [id number] 22:57:00 Test Item Value Reference Range Interpretation Comments TOTAL PROTEIN (test code = PROT) G/DL 6.3-8.2 ALBUMIN (test code = ALB) 4.5 G/DL 3.5-5.0 N BILIRUBIN TOTAL (test code = BILT) MG/DL 0.2-1.3 BILIRUBIN DIRECT (test code = BILD) MG/DL 0.0-0.3 SGOT/AST (test code = AST) UNITS/L 15-37 SGPT/ALT (test code = ALT) UNITS/L <35 ALKALINE PHOSPHATASE (test code = UNITS/L 38-126 ALKP) [id number] 22:57:00 Test Item Value Reference Range Interpretation Comments ALCOHOL (test code = ALC) MG/DL <10 URINALYSIS [id number] 22:55:00 Test Item Value Reference Range Interpretation [...] OF URINE: CLEAN CATCHDRUGS OF ABUSE SCREEN [id number] 22:55:00 Test Item Value Reference Range Interpretation [...] PHENCU) SOURCE OF URINE: CLEAN CATCHCBC W/O [id number] 22:53:00 Test Item Value Reference Range Interpretation [...] = 0.00 K/mm3 0.0-0.1 N NRBC#) WBC [id number] 22:53:00 Test Item Value Reference Range Interpretation Comments RBC MORPHOLOGY REQUIRED (test code = RBCM) TOTAL CELLS COUNTED (test code = TCC) #CELLS SEGMENTED NEUTROPHILS (test code = % 36.2-73.8 SEG) LYMPHOCYTE (test code = LYMPH) % 12.9-45.1 MONOCYTE (test code = MON) % 0-11 PLATELET ESTIMATE (test code = ADEQUATE PLTEST) PLATELET MORPHOLOGY (test code = NORMAL PLTMORPH) CBC W/AUTO [id number] 22:53:00 Test Item Value Reference Range Interpretation [...] = 0.00 K/mm3 0.0-0.1 N NRBC#) WBC [id number] 22:53:00 Test Item Value Reference Range Interpretation [...]
[2021-11-16] MEDS ORDERED: FENTANYL CITR 100 MCG/2 ML ONE (00:39)
[2021-11-16] MEDS ORDERED: ONDANSETRON 4 MG/2 ML VIAL ONE (00:39)
[2021-11-16 00:47] LABS: Absolute Lymphocytes (CBC) 2.9 K/uL (0.7-4.9); Hematocrit 32.7 % (36.0-45.0); Lymphocytes % 41.3 % (15.3-44.8); MPV 6.7 fL (7.6-11.3); RBC Red Blood Cell Count 3.84 M/uL (3.86-4.86)
[2021-11-16 00:56] LABS: ALT/SGPT 62 U/L (12-78); AST/SGOT 64 U/L (15-37); Albumin 3.6 g/dL (3.4-5.0); Alkaline Phosphatase 81 U/L (45-117); BUN Blood Urea Nitrogen 12 mg/dL (7-18); Bicarbonate 28 mmol/L (21-32); Bilirubin Total 0.5 mg/dL (0.2-1.0); Glucose Level 97 mg/dL (74-106); Lipase 80 U/L (73-393); Potassium 3.7 mmol/L (3.5-5.1); Protein, Total 7.1 g/dL (6.4-8.2); Sodium Level 137 mmol/L (136-145)
[2021-11-16 00:58] LABS: Urine Blood Trace-intact (Negative); Urine Glucose Negative (Negative); Urine Protein 1+ (Negative); Urine Specific Gravity 1.025 (1.005-1.030); Urine pH 6.5 (5.0-7.0)
[2021-11-16 01:33] LABS: Blood Morphology Comment NOT SEEN (NOT SEEN); Platelet Estimate ADEQ
--- NOTE | 2021-11-16 01:41 | EDPHYS ---
Physician Documentation [facility] Name: Lucina Rosa Age: 61 yrs Sex: Female : 1960 Arrival Date: 11/15/2021 Time: 21:34 Bed 10 Private MD: KIMBERLY Physician Chriss Valerio HPI: 11/16 00:20 This 61 yrs old Female presents to ER via Wheelchair with complaints of Knee Pain, pm1 Right flank pain. 00:20 The patient complains of pain in the right low back. The pain does not radiate. Onset: pm1 The symptoms/episode began/occurred 3 day(s) ago. Modifying factors: The symptoms are alleviated by. Associated signs and symptoms: Pertinent negatives: diarrhea, dysuria, fever, nausea, vomiting. Severity of pain: in the emergency department the pain is actually worse. The patient has not experienced similar symptoms in the past. The patient has not recently seen a physician. Patient presenting with left knee pain that started 3 days ago after she jumped out of bed with a resulting popping sound. Patient is also here with complaints of right lower back pain. Has had an MRI in the past which showed kidney stones and she is worried that the stones are causing pain at the moment. Historical: - Allergies: 11/15 21:52 Naproxen; lp1 21:52 Ultram; lp1 21:52 Celebrex; lp1 - Home Meds: 21:52 None [Active]; lp1 - PMHx: 21:52 Bipolar disorder; Schizophrenia; Hypertensive disorder; lp1 - Immunization history:: Adult Immunizations up to date, Client reports receiving the 1st dose of the Covid vaccine. - Social history:: Smoking status: Patient reports the use of cigarette tobacco products, denies chronic smoking, but will smoke occasionally. ROS: 11/16 00:20 Constitutional: Negative for fever, chills, and weight loss, Eyes: Negative for injury, pm1 pain, redness, and discharge, Cardiovascular: Negative for chest pain, palpitations, and edema, Respiratory: Negative for shortness of breath, cough, wheezing, and pleuritic chest pain, Abdomen/GI: Negative for abdominal pain, nausea, vomiting, diarrhea, and constipation. Skin: Negative for injury, rash, and discoloration, Neuro: Negative for headache, weakness, numbness, tingling, and seizure. Back: Positive for flank pain, on the right. MS/extremity: Positive for pain, swelling, tenderness, of the left knee. All other systems are negative. Exam: 00:20 Constitutional: This is a well developed, well nourished patient who is awake, alert, pm1 and in no acute distress. Head/Face: Normocephalic, atraumatic. 00:20 Skin: Warm, dry with normal turgor. Normal color with no rashes, no lesions, and no evidence of cellulitis. 00:20 Cardiovascular: Exam negative for acute changes, Rate: normal, Rhythm: regular, Pulses: no pulse deficits are appreciated, Heart sounds: normal. 00:20 Respiratory: Exam negative for acute changes, respiratory distress, shortness of breath, Breath sounds: are clear throughout. 00:20 Abdomen/GI: Exam negative for acute changes, Inspection: abdomen appears normal, Palpation: abdomen is soft and non-tender, in all quadrants. 00:20 Back: pain, that is mild, of the right low back, muscle spasm, is appreciated in the right low back. 00:20 Musculoskeletal/extremity: Extremities: grossly normal except: noted in the left knee: swelling, tenderness, There is no evidence of erythema. 00:20 Neuro: Exam negative for acute changes, Orientation: is normal, Mentation: is normal, Motor: moves all fours. Vital Signs: 11/15 21:54 BP 142 / 73; Pulse 84; Resp 18; Temp 98.8(TE); Pulse Ox 98% on R/A; Weight 83.91 kg lp1 (R); Height 5 ft. 1 in. (154.94 cm); Pain 10/10; 21:54 Body Mass Index 34.95 (83.91 kg, 154.94 cm) lp1 MDM: 11/16 00:10 Patient medically screened. kin 01:38 Data reviewed: vital signs. Data interpreted: Pulse oximetry: on room air is 98 %. pm1 Interpretation: normal. Counseling: I had a detailed discussion with the patient and/or guardian regarding: the historical points, exam findings, and any diagnostic results supporting the discharge/admit diagnosis, radiology results, the need for outpatient follow up, a family practitioner, a orthopedic surgeon, to return to the emergency department if symptoms worsen or persist or if there are any questions or concerns that arise at home. 01:54 ED course: SURGICAL [employer]ACE [employer]ER aware reviewed. pm1 11/16 00:20 Order name: CBC with Diff; Complete Time: 01:37 pm1 11/16 00:20 Order name: CMP; Complete Time: 01:00 pm1 11/16 00:20 Order name: Knee Left 3 View XRAY pm1 11/16 00:20 Order name: Lipase; Complete Time: 01:00 pm1 11/16 00:54 Order name: Manual Differential; Complete Time: 01:37 EDMS 11/16 00:58 Order name: Urine Dipstick-Ancillary; Complete Time: 01:00 EDMS 11/16 00:20 Order name: Knee Immobilizer; Complete Time: 02:01 pm1 11/16 00:20 Order name: IV Saline Lock; Complete Time: 00:31 pm1 11/16 00:20 Order name: Labs collected and sent; Complete Time: 00:31 pm1 11/16 00:20 Order name: CT Stone Protocol pm1 11/16 00:20 Order name: Urine Dipstick-Ancillary (obtain specimen); Complete Time: 00:46 pm1 Administered Medications: 00:41 Drug: Zofran (Ondansetron) 4 mg Route: IVP; Site: right antecubital; vc1 00:41 Drug: fentaNYL (PF) 25 mcg Route: IVP; Site: right antecubital; vc1 Disposition Summary: 11/16/21 01:40 Discharge Ordered Location: Home pm1 Problem: new pm1 Symptoms: have improved pm1 Condition: Stable pm1 Diagnosis - Pain in left knee - possible derangement of left knee pm1 - Low back pain pm1 Followup: pm1 - With: Emergency Department - When: As needed - Reason: Worsening of condition Followup: pm1 - With: Private Physician - When: 2 - 3 days - Reason: Recheck today's complaints, Continuance of care, Re-evaluation by your physician Discharge Instructions: - Discharge Summary Sheet pm1 - Acute Back Pain, Adult pm1 - Crutch Use, Adult pm1 - How to Use a Knee Immobilizer pm1 - Acute Knee Pain, Adult pm1 Forms: - Medication Reconciliation Form pm1 - Thank You Letter pm1 - Antibiotic Education pm1 - Prescription Opioid Use pm1 Prescriptions: - Tylenol-Codeine #3 300 mg-30 mg Oral - take 2 tablet by ORAL route every 6 hours As needed; 20 tablet; Refills: 0, pm1 Product Selection Permitted Addendum: 11/18/2021 07:17 Co-signature as Attending Physician, Chriss Valerio MD I agree with the assessment and c quiñones plan of care. Signatures: Dispatcher [employer] Chriss William MD MD cha Pena, Laura RN RN lp1 Matheus Mckinley, BAIT MAN BAIT MAN pm1 Zainab Corona RN RN vc1
--- NOTE | 2021-11-16 01:41 | ER ---
Nurse's Notes [facility] Name: Lucina Rosa Age: 61 yrs Sex: Female : 1960 Arrival Date: 11/15/2021 Time: 21:34 Bed 10 Private MD: Diagnosis: Pain in left knee-possible derangement of left knee;Low back pain Presentation: 11/15 21:48 Chief complaint: Patient states: "I'm here because I can;'t walk, and I have back pain lp1 and I have had kidney stones before"; Reports pain with walking on left leg x 1 week; Reports low back pain x 6 months and had MRI that diagnosed kidney stones to the right, "I have been dealing with the pain since I didn't have insurance". Coronavirus screen: At this time, the client does not indicate any symptoms associated with coronavirus-19. Ebola Screen: No symptoms or risks identified at this time. Risk Assessment: Do you want to hurt yourself or someone else? Patient reports no desire to harm self or others. Onset of symptoms was November 15, 2021. 21:48 Method Of Arrival: Wheelchair lp1 21:48 Acuity: TORIBIO 3 lp1 21:54 Initial Sepsis Screen: Does the patient meet any 2 criteria? No. Patient's initial lp1 sepsis screen is negative. Does the patient have a suspected source of infection? No. Patient's initial sepsis screen is negative. Historical: - Allergies: 21:52 Naproxen; lp1 21:52 Ultram; lp1 21:52 Celebrex; lp1 - Home Meds: 21:52 None [Active]; lp1 - PMHx: 21:52 Bipolar disorder; Schizophrenia; Hypertensive disorder; lp1 - Immunization history:: Adult Immunizations up to date, Client reports receiving the 1st dose of the Covid vaccine. - Social history:: Smoking status: Patient reports the use of cigarette tobacco products, denies chronic smoking, but will smoke occasionally. Vital Signs: 21:54 BP 142 / 73; Pulse 84; Resp 18; Temp 98.8(TE); Pulse Ox 98% on R/A; Weight 83.91 kg lp1 (R); Height 5 ft. 1 in. (154.94 cm); Pain 10/10; 21:54 Body Mass Index 34.95 (83.91 kg, 154.94 cm) lp1 ED Course: 21:34 Patient arrived in ED. ds1 21:52 Triage completed. lp1 21:54 Arm band placed on left wrist. lp1 04 00:05 Matheus Mckinley NP is PHCP. pm1 00:05 Chriss Valerio MD is Attending Physician. pm1 00:22 Zainab Corona, RN is Primary Nurse. vc1 00:32 CBC with Diff Sent. vc1 00:32 CMP Sent. vc1 00:32 Lipase Sent. vc1 01:07 CT Stone Protocol In Process Unspecified. EDMS 01:10 Knee Left 3 View XRAY In Process Unspecified. EDMS Administered Medications: 00:41 Drug: Zofran (Ondansetron) 4 mg Route: IVP; Site: right antecubital; vc1 00:41 Drug: fentaNYL (PF) 25 mcg Route: IVP; Site: right antecubital; vc1 Outcome: 01:40 Discharge ordered by . pm1 02:08 Patient left the ED. vc1 Signatures: Dispatcher [employer] EDMS StoreySadie graves ds1 Kristie Pimentel RN RN lp1 Matheus Mckinley, BRUNA BLAST SETTER pm1 Zainab Corona, DAVID HERNANDEZ vc1
[2021-11-16 05:42] VITALS: BP 142/73; TEMP 98.8; O2SAT 98
--- NOTE | 2021-11-16 10:27 | RAD REPORT ---
EXAM DESCRIPTION: RAD - Knee Left 3 View - 11/16/2021 1:08 am CLINICAL HISTORY: 61 years Female, PAIN COMPARISON: None. FINDINGS: No evidence of an acute fracture of the left knee. No dislocation. A few nonspecific small calcific densities in the soft tissues anterior to the tibia noted. No defini te knee joint effusion. IMPRESSION: No evidence for an acute fracture of the left knee. Electronically signed by: Negro Kwok MD 11/16/2021 1:26 AM CDT Due to temporary technical issues with the PACS/Fluency reporting system, reports are being signed by the in house radiologists without review as a courtesy to insure prompt reporting. The interpreting radiologist is fully responsible for the content of the report.
--- NOTE | 2021-11-16 10:29 | RAD REPORT ---
EXAM DESCRIPTION: CT - Stone Protocol - 11/16/2021 4:37 am CLINICAL HISTORY: The patient is 61 years old and is Female; FLANK PAIN TECHNIQUE: Axial computed tomography images of the abdomen and pelvis without intravenous contrast. Sagittal and coronal reformatted images were created and reviewed. This CT exam was performed usi ng one or more of the following dose reduction techniques: automated exposure control, adjustment o f the mA and/or kV according to patient size, and/or use of iterative reconstruction technique. COMPARISON: No relevant prior studies available. FINDINGS: Lung bases: Unremarkable. No mass. No consolidation. ABDOMEN: Liver: Unremarkable. Gallbladder and bile ducts: Unremarkable. No calcified stones. No ductal dilation. Pancreas: Unremarkable. No ductal dilation. Spleen: Unremarkable. No splenomegaly. Adrenals: Unremarkable. No mass. Kidneys and ureters: Nonobstructing calcifications in the kidneys. Stomach and bowel: Unremarkable. No obstruction. No mucosal thickening. PELVIS: Appendix: No findings to suggest acute appendicitis. Bladder: Unremarkable. No stones. Reproductive: Unremarkable as visualized. ABDOMEN and PELVIS: Intraperitoneal space: Unremarkable. No free air. No significant fluid collection. Bones/joints: Disc bulges at L2-3, L3-4, and L4-5. No acute fracture. No dislocation. Soft tissues: Unremarkable. Vasculature: Unremarkable. No abdominal aortic aneurysm. Lymph nodes: Unremarkable. No enlarged lymph nodes. IMPRESSION: No acute findings in the abdomen or pelvis. Electronically signed by: Delonte Arzate MD 11/16/2021 1:22 AM CDT Due to temporary technical issues with the PACS/Fluency reporting system, reports are being signed by the in house radiologists without review as a courtesy to insure prompt reporting. The interpreting radiologist is fully responsible for the content of the report.
== END 2021-11-16 02:08 | disposition home or self-care (01) ==
LOC: ER 21:32
DX: M25.562 Pain in left knee (principal); M54.50 Low back pain, unspecified; I10 Essential (primary) hypertension; F17.210 Nicotine dependence, cigarettes, uncomplicated; Z88.6 Allergy status to analgesic agent; Z88.8 Allergy status to other drugs, medicaments and biological substances
CPT/HCPCS: 85025; 36415; 81003; 83690; 80053; 76377; 74176; 73562; J3010; J2405; 96374; 96375; 99283

== ENCOUNTER 2022-08-24 15:20 | Emergency (ER) | payer OTHER ==
--- OUTSIDE RECORDS SUMMARY | 2022-08-24 15:26 | XMS REPORT | Continuity of Care Document ---
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 [place] 15:06:29 15:06:29 [facility] 2018-08-09 2018-08-09 Outpatient [facility] [id number] [place] 00:00:00 00:00:00 [facility] 2018-04-05 2018-04-05 Emergency nullFlavo [facility] [id number] [place] 09:19:00 11:44:00 r Helio 00 l [facility] 2018-04-05 2018-04-05 Emergency nullFlavo [facility] [id number] Mem[place] 09:19:00 11:44:00 tatyana Cadet 00 l [facility] 2018-04-05 2018-04-05 Outpatient Devin [facility] [id number] 04:19:00 06:44:00 Bo Morris 00 Results Test Description Test Time Test Comments [...] Criteria Culture Chk Indication for culture: Dysuria/FrequencyUA [id number] 18:31:00 Test Item Value Reference Range Interpretation Comments UA RBC (test code = RBCU) NONE RBC/HPF 0-3 UA WBC (test code = XWBCU) 3-5 WBC/HPF 0-5 UA EPITHELIAL CELLS (test code = RARE EPI/HPF FEW EPIU) UA BACTERIA (test code = XBACU) FEW NONE Indication for culture: Dysuria/FrequencyCOVID 19 INHOUSE [id number] 18:16:00 Test Item Value Reference Range Interpretation Comments COVID 19 INHOUSE NEGATIVE Negative "Negative r esults from AG (test code = patients wit h symptom onset [id number]) beyondfive days , should be treated as [...] virus (antigen) in the sample." COMPREHENSIVE METABOLIC [id number] 18:14:00 Test Item Value Reference Range Interpretation [...] newinformation regarding the potential i nterference ofEltrombopag ( a bone marrow stimulan t used to treatthrombocyt onmenia and aplastic anemia ) with specific assays on the Vitros 5600 of which Total Protein is one of thoseassays per formed in our lab.Interfe rence testing perform ed at [facility] determined that Eltrombopag does interfere with Vitros Total Protein asfollowsEltrom bopag Interference fo r Vitros Product Total Protein:======= Eltrombopag Max Observed Av g. BiasConcentrati on Concentration Concentration== ==== 2.5 mg/dl 6.0 g/dl +0.41 +0.34 3.5 mg/dl 6.0 g /dl +0.50 +0.45 5 mg/dl 6 .0 g/dl +0.73 +0.65 2.5 mg/dl 8.0 g/dl +0.44 +0.4 1 3.5 mg/dl 8.0 g/dl +0.55 +0.52 5 mg/dl 8.0 g/dl +0.86 +0.77 ALBUMIN (test 4.2 G/DL 3.5-5.0 N code = ALB) CALCIUM (test 9.2 MG/DL 8.4-10.2 N code = CA) BILIRUBIN TOTAL 0.3 MG/DL 0.2-1.3 N Eltrombopag Interference (test code = for Vitros Prod uct TBil, BILT) BuBc: Assa y Eltrombopag Jenn lyte/ Max Observed Avg. B ias Concentration C oncentration Concentration== ====TBil 7mg/dl TBil/ 1. 2mg/dl +0.23mg.dl +0.2 0mg/dlBuBc 3.5mg/dl Bu/0. 8mg/dl +0.25mg/dl +0.2 4mg/dlBuBc 7 mg/dl Bu/14.2mg /dl +0.38mg/dl +0.2 5mg/dlBuBc 5mg/dl Bc/0mg/d l +0.25mg/dl +0.15mg/dlBuBc 3.5mg/dl Bc/2.8mg/dl +0 .25mg/dl +0.23mg/dl SGOT/AST (test 74 UNITS/L 14-36 H code = AST) SGPT/ALT (test 59 UNITS/L 0-34 H code = ALT) ALKALINE 90 UNITS/L 38-126 N PHOSPHATASE (test code = ALKP) [id number] 18:14:00 Test Item Value Reference Range Interpretation Comments LIPASE (test code = LIP) 91 UNITS/L 23-300 N CBC W/AUTO [id number] 17:58:00 Test Item Value Reference Range Interpretation [...] N NRBC#) - CT ABD PELVIS W/O [id number] 17:42:00 [facility] 1960 Sex: F Patient Name: VANESSA SRIVASTAVA Unit No: [id number] EXAMS: CPT CODE: [id number] CT ABD PELVIS W/O CONT 68760 EXAM: - CT ABD PELVIS W/O CONT [...] abdominopelvic organs and vasculature. Visualized chest: No sign ificant abnormality seen. Hepatobiliary: Suspect cirrhosis. Gallbladder appears unremarkable. No intrahepatic or extrahepatic biliary dilatation is seen. Pancreas: Appears unremarkable. Spleen: Appearsunremarkable. Adrenal glands: Appear unremarkable. Kidneys: In the [...] No ascites or free air is seen. Genitourinary:Urinary bladder appears to be mildly distended. Soft tissues:Small fat-containing umbilical hernia. Bones:No acute or destructive osseous process seen. There is 2 mm anterolisthesis of L3 on L4. Severe bilateral facet arthropathy noted at this level. Moderate to severe facet arthropathy also seen at L2-L3. Multilevel mild to moderate disc degenerative changes. [facility] NAME: VANESSA SRIVASTAVA [id number] [address] PHYS: BENAL. [place] [address] : 1960 AGE: 61 SEX: F LOC: Z.ERS PHONE #: [phone] EXAMDATE: 08/17/2021 STATUS: REG ER FAX #: [phone] RAD #: D/C DT PAGE 1 Signed Report (CONTINUED) Patient Name: VANESSA SRIVASTAVA Unit No: [id number] EXAMS: CPT CODE: [id number] CT ABD PELVIS W/O CONT 85580 (Continued) IMPRESSION: Bilateral nephrolithiasis. No hydronephrosis seen. No free air, bowel obstruction, ileus or fluid collection seen. Suspect cirrhosis. There is 2 mm anterolisthesis of L3 on L4.Advanced lumbar spine degenerative arthropathy as noted in the findings. Please refer to the findings section for additional details. at 1742 Reported and signed by: Mariusz Espinal MD CC: Rui Mathias MD Technologist: Josiah Weaver, RT(R); [facility] CTDI: DLP: Trnscrpt: 08/17/2021 (1742) [id number].[id number] [facility] NAME: VANESSA SRIVASTAVA [id number] [address] PHYS: RUPALI.Rui Mccarthy MD [place] [id number] : 1960 AGE: 61 SEX: F LOC: Nohemi.ERS PHONE #: [phone] EXAM DATE: 08/17/2021 STATUS: REG ER FAX #: [phone] RAD #: D/C DT PAGE 2 Signed Report Patient Name: VANESSA SRIVASTAVA Unit No: [id number] EXAMS: CPT CODE: [id number] CT ABD PELVIS W/O CONT 67015 (Continued) Orig Print D/T: S: 08/17/2021 (1745) [facility] NAME: VANESSA SRIVASTAVA [id number] [address] PHYS: [place] [address] : 1960 AGE: 61 SEX: F LOC: Z.ERS PHONE #: [phone] EXAM DATE: 08/17/2021 STATUS: REG ER FAX #: [phone] RAD #: D/C DT PAGE 3 Signed Report- CT HEAD/BRAIN W/O CONT 2021-08-17 17:40:00 [facility] : 1960 Sex: F Patient Name: VANESSA SRIVASTAVA Unit No: [id number] EXAMS: CPT CODE: [id number] CT HEAD/BRAIN W/O CONT 56360 Exam: CT of the brain without contrast. [...] H19 Findings: The ventricles and sulci are age appropriate. The basal cisterns are patent. There is nomass effect or midline shift. There is no evidence for acute territorial infarction. There is no acute intracranial hemorrhage. There are no extra-axial fluid collections. There is minimal mucosal disease within the bilateral ethmoid sinuses. The mastoid air cells appear well aerated. Impression: No CT evidence of an acute intracranial abnormality. at 1740 Reported and signed by: Jamie Cota MD CC: Rui Mathias MD Technologist: Josiah Weaver, RT(R); [facility] CTDI: DLP: Trnscrpt: 08/17/2021 (8984) [id number].[id number] [facility] NAME: VANESSA SRIVASTAVA [id number] [address] PHYS: RUPALI.Marina Alcaraz Rui Mathias MD [place] [id number] : 1960 AGE: 61 SEX: F LOC: JASKARAN PHONE #: [phone] EXAM DATE: 08/17/2021 STATUS: REG ER FAX #: [phone] RAD #: D/C DT PAGE 1 Signed Report Patient Name: VANESSA SRIVASTAVA Unit No: [id number] EXAMS: CPT CODE: [id number] CT HEAD/BRAIN W/O CONT 50909 (Continued) Orig Print D/T: S: 08/17/2021 (1743) [facility] NAME: VANESSA SRIVASTAVA [id number] [address] PHYS: CESAR [place] [address] : 1960 AGE: 61 SEX: F LOC: Nohemi.ERS PHONE #: [phone] EXAM DATE: 08/17/2021 STATUS: REG ER FAX #: [phone] RAD #: D/C DT PAGE 2 Signed ReportAcute Hepatitis [id number] 07:16:00 Test Item Value Reference Range Interpretation Comments zzzHep A Antibody, Negative IgM (test code = zzzHepAAntibody,IgM ) HBsAg Screen (test Negative code = HBsAgScreen) zzzHep B Core Negative Antibody,IgM (test code = zzzHepBCoreAntibody ,IgM) Hep C Virus Ab >11.0 Negative: < 0.8 (363669) (test code Indeterminate: 0.8 - 0.9 = Positive: > 0.9 . The CDC HepCVirusAb(084904) recommends that a positive ) HCV antibody result be followed up with a HCV Nucleic Acid Amplification test (136245). Thyroid Panel with [id number] 15:37:00 Test Item Value Reference Range Interpretation Comments Thyroxine (test code = 9.3 ug/dL Thyroxine) T3 Uptake (test code = 23 % M9Vmcksd) Free Thyroxine Index (test 2.1 code = FreeThyroxineIndex) TSH (478150) (test code = 3.700 {uIU/mL} TSH(708854)) Lipid [id number] 15:37:00 Test Item Value Reference Range Interpretation Comments zzzCholesterol, Total (test code = 162 mg/dL zzzCholesterol,Total) Triglycerides (test code = 61 mg/dL Triglycerides) zzzHDL Cholesterol (test code = 88 mg/dL zzzHDLCholesterol) VLDL Cholesterol Calculated (test 12 mg/dL code = VLDLCholesterolCalculated) LDL Cholesterol KIRTI (NIH) (test 62 mg/dL code = LDLCholesterolCAL(NIH)) Comprehensive Metabolic [id number] 15:37:00 Test Item Value Reference Range Interpretation Comments Glucose,Serum (test code = 84 mg/dL Glucose,Serum) BUN (test code = BUN) 15 mg/dL Creatinine,Serum (test code = 0.75 mg/dL Creatinine,Serum) eGFR If NonAfrican Am 87 mL/min/1.73 (157150) (test code = eGFRIfNonAfricanAm(426342)) eGFR If Am (326811) 100 mL/min/1.73 (test code = eGFRIfAfricanAm(108002)) BUN/Creat Ratio (test code = 20 BUN/CreatRatio) [...] ALT (test code = ALT) 32 {IU/L} [id number] 09:45:00 Test Item Value Reference Range Interpretation Comments ALCOHOL (test code = ALC) < 10.0 MG/DL <10 COVID 19 Asymptomatic IH [id number] 23:31:00 Test Item Value Reference Range Interpretation Comments COVID 19 NEGATIVE Negative "Negative resul ts from Asymptomatic IH AG patients with symptom (test code = onset beyondfiv e days, COVNONPUIAG) should be treat ed as presumptive, andconfirmation with a molecular assay [...] virus (antigen) in the sample." CBC W/O [id number] 23:30:00 Test Item Value Reference Range Interpretation [...] = 0.00 K/mm3 0.0-0.1 N NRBC#) WBC [id number] 23:30:00 Test Item Value Reference Range Interpretation [...] (test code = NORMAL NORMAL PLTMORPH) URINALYSIS [id number] 23:08:00 Test Item Value Reference Range Interpretation [...] OF URINE: CLEAN CATCHDRUGS OF ABUSE SCREEN [id number] 23:08:00 Test Item Value Reference Range Interpretation [...] PHENCU) ng/mL SOURCE OF URINE: CLEAN CATCHURINALYSIS [id number] 23:07:00 Test Item Value Reference Range Interpretation [...] OF URINE: CLEAN CATCHDRUGS OF ABUSE SCREEN [id number] 23:07:00 Test Item Value Reference Range Interpretation [...] = PHENCU) SOURCE OF URINE: CLEAN CATCHURINALYSIS [id number] 23:06:00 Test Item Value Reference Range Interpretation [...] OF URINE: CLEAN CATCHDRUGS OF ABUSE SCREEN [id number] 23:06:00 Test Item Value Reference Range Interpretation [...] = PHENCU) SOURCE OF URINE: CLEAN CATCHURINALYSIS [id number] 23:05:00 Test Item Value Reference Range Interpretation [...] OF URINE: CLEAN CATCHDRUGS OF ABUSE SCREEN [id number] 23:05:00 Test Item Value Reference Range Interpretation [...] = PHENCU) SOURCE OF URINE: CLEAN CATCHURINALYSIS [id number] 23:04:00 Test Item Value Reference Range Interpretation [...] OF URINE: CLEAN CATCHDRUGS OF ABUSE SCREEN [id number] 23:04:00 Test Item Value Reference Range Interpretation [...] PHENCU) SOURCE OF URINE: CLEAN CATCHBASIC METABOLIC [id number] 23:01:00 Test Item Value Reference Range Interpretation [...] 9.1 MG/DL 8.4-10.2 N CA) HEPATIC FUNCTION [id number] 23:01:00 Test Item Value Reference Range Interpretation [...] code = 79 UNITS/L 38-126 N ALKP) [id number] 23:01:00 Test Item Value Reference Range Interpretation Comments ALCOHOL (test code = 257.0 MG/DL <10 HH CALLED TO GRISEL Jimenez& ALC) READBACK ON AT 2301 BY Mya Bustos URINALYSIS [id number] 23:00:00 Test Item Value Reference Range Interpretation [...] OF URINE: CLEAN CATCHDRUGS OF ABUSE SCREEN [id number] 23:00:00 Test Item Value Reference Range Interpretation [...] PHENCU) SOURCE OF URINE: CLEAN CATCHBASIC METABOLIC [id number] 22:59:00 Test Item Value Reference Range Interpretation [...] 9.1 MG/DL 8.4-10.2 N CA) HEPATIC FUNCTION [id number] 22:59:00 Test Item Value Reference Range Interpretation [...] code = 79 UNITS/L 38-126 N ALKP) [id number] 22:59:00 Test Item Value Reference Range Interpretation Comments ALCOHOL (test code = ALC) MG/DL <10 BASIC METABOLIC [id number] 22:58:00 Test Item Value Reference Range Interpretation [...] code = MG/DL 8.7-9.7 CA) HEPATIC FUNCTION [id number] 22:58:00 Test Item Value Reference Range Interpretation [...] PHOSPHATASE (test code = UNITS/L 38-126 ALKP) [id number] 22:58:00 Test Item Value Reference Range Interpretation Comments ALCOHOL (test code = ALC) MG/DL <10 BASIC METABOLIC [id number] 22:57:00 Test Item Value Reference Range Interpretation [...] code = CA) MG/DL 8.7-9.7 HEPATIC FUNCTION [id number] 22:57:00 Test Item Value Reference Range Interpretation Comments TOTAL PROTEIN (test code = PROT) G/DL 6.3-8.2 ALBUMIN (test code = ALB) 4.5 G/DL 3.5-5.0 N BILIRUBIN TOTAL (test code = BILT) MG/DL 0.2-1.3 BILIRUBIN DIRECT (test code = BILD) MG/DL 0.0-0.3 SGOT/AST (test code = AST) UNITS/L 15-37 SGPT/ALT (test code = ALT) UNITS/L <35 ALKALINE PHOSPHATASE (test code = UNITS/L 38-126 ALKP) [id number] 22:57:00 Test Item Value Reference Range Interpretation Comments ALCOHOL (test code = ALC) MG/DL <10 URINALYSIS [id number] 22:55:00 Test Item Value Reference Range Interpretation [...] OF URINE: CLEAN CATCHDRUGS OF ABUSE SCREEN [id number] 22:55:00 Test Item Value Reference Range Interpretation [...] PHENCU) SOURCE OF URINE: CLEAN CATCHCBC W/O [id number] 22:53:00 Test Item Value Reference Range Interpretation [...] = 0.00 K/mm3 0.0-0.1 N NRBC#) WBC [id number] 22:53:00 Test Item Value Reference Range Interpretation Comments RBC MORPHOLOGY REQUIRED (test code = RBCM) TOTAL CELLS COUNTED (test code = TCC) #CELLS SEGMENTED NEUTROPHILS (test code = % 36.2-73.8 SEG) LYMPHOCYTE (test code = LYMPH) % 12.9-45.1 MONOCYTE (test code = MON) % 0-11 PLATELET ESTIMATE (test code = ADEQUATE PLTEST) PLATELET MORPHOLOGY (test code = NORMAL PLTMORPH) CBC W/AUTO [id number] 22:53:00 Test Item Value Reference Range Interpretation [...] = 0.00 K/mm3 0.0-0.1 N NRBC#) WBC [id number] 22:53:00 Test Item Value Reference Range Interpretation Comments RBC MORPHOLOGY REQUIRED (test code = RBCM) TOTAL CELLS COUNTED (test code = TCC) #CELLS SEGMENTED NEUTROPHILS (test code = % 36.2-73.8 SEG) LYMPHOCYTE (test code = LYMPH) % 12.9-45.1 MONOCYTE (test code = MON) % 0-11 PLATELET ESTIMATE (test code = ADEQUATE PLTEST) PLATELET MORPHOLOGY (test code = NORMAL PLTMORPH) URINE AND [id number] 17:31:00 Test Item Value Reference Range Interpretation Comments UA pH (test code = UA pH) 5.0 1 5.0-8.0 [facility] AND [id number] 17:31:00 Test Item Value Reference Range Interpretation Comments UA Protein (test code = UA Negative mg/dL Protein) [facility] AND [id number] 17:31:00 Test Item Value Reference Range Interpretation Comments UA Glucose (test code = UA Negative mg/dL Glucose) [facility] AND [id number] 17:31:00 Test Item Value Reference Range Interpretation Comments UA Bili (test code = Negative *NA*(07/23/19 UA Bili) 11:31 AM) [facility] [id number] 17:31:00 Test Item Value Reference Range Interpretation Comments UA Blood (test code = Negative (07/23/19 11:31 UA Blood) AM) [facility] [id number] 17:31:00 Test Item Value Reference Range Interpretation Comments UA Nitrite (test code Negative (07/23/19 = UA Nitrite) 11:31 AM) [facility] [id number] 17:31:00 Test Item Value Reference Range Interpretation Comments UA Leuk Est (test code Trace *ABN*(07/23/19 = UA Leuk Est) 11:31 AM) [facility] [id number] 17:31:00 Test Item Value Reference Range Interpretation Comments UA Sq Epi (test code = UA Sq Occasional /LPF Epi) [facility] [id number] 17:31:00 Test Item Value Reference Range Interpretation Comments UA WBC (test code = 2 See_Comment [Automa shelly message] The UA WBC) system which ge nerated this result transmit shelly reference range : <=5. The reference range was not used to interpr et this result as lisa l/abnormal. [facility] [id number] 17:31:00 Test Item Value Reference Range Interpretation Comments UA RBC (test code = no gt See_Comment [Automa shelly message] The UA RBC) system which ge nerated this result transmit shelly reference range : <=2. The reference range was not used to interpr et this result as lisa l/abnormal. [facility] [id number] 17:31:00 Test Item Value Reference Range Interpretation Comments UA Bacteria (test code = UA Occasional /HPF Bacteria) [facility] [id number] 17:31:00 Test Item Value Reference Range Interpretation Comments UA Mucus (test code = UA Mucus) Few /LPF [facility] [id number] 17:31:00 Test Item Value Reference Range Interpretation Comments UA Ketones (test code = UA Ketones) Negative [facility] [id number] 17:31:00 Test Item Value Reference Range Interpretation Comments UA Urobilinogen (test code = UA <=1.0 mg/dL 0.1-1.0 Urobilinogen) [facility] [id number] 17:31:00 Test Item Value Reference Range Interpretation Comments U Amph Scr (test code Negative *NA*(07/23/19 = U Amph Scr) 11:31 AM) [facility] [id number] 17:31:00 Test Item Value Reference Range Interpretation Comments U Kaylene Scr (test code Negative *NA*(07/23/19 = U Kaylene Scr) 11:31 AM) [facility] [id number] 17:31:00 Test Item Value Reference Range Interpretation Comments U Benzodiaz Scr (test Positive code = U Benzodiaz Scr) *ABN*(07/23/19 11:31 AM) [facility] [id number] 17:31:00 Test Item Value Reference Range Interpretation Comments U Cocaine Scr (test Positive *ABN*(07/23/19 code = U Cocaine Scr) 11:31 AM) [facility] [id number] 17:31:00 Test Item Value Reference Range Interpretation Comments U Cannab Scr (test Negative *NA*(07/23/19 code = U Cannab Scr) 11:31 AM) [facility] [id number] 17:31:00 Test Item Value Reference Range Interpretation Comments U Opiate Scr (test Negative *NA*(07/23/19 code = U Opiate Scr) 11:31 AM) [facility] [id number] 17:31:00 Test Item Value Reference Range Interpretation Comments U Phencyclidine Scr (test Negative code = U Phencyclidine *NA*(07/23/19 11:31 Scr) AM) [facility] [id number] 17:31:00 Test Item Value Reference Range Interpretation Comments UDS Note (test code = See Note (07/23/19 UDS Note) 11:31 AM) [facility] [id number] 17:31:00 Test Item Value Reference Range Interpretation Comments UA Color (test code = Yellow *NA*(07/23/19 UA Color) 11:31 AM) [facility] [id number] 17:31:00 Test Item Value Reference Range Interpretation Comments UA Turbidity (test code = Clear (07/23/19 UA Turbidity) 11:31 AM) [facility] [id number] 17:31:00 Test Item Value Reference Range Interpretation Comments UA Spec Grav (test code = UA Spec 1.015 1 Grav) [facility] [id number] 17:31:00 Test Item Value Reference Range Interpretation Comments UA pH (test code = UA pH) 5.0 1 5.0-8.0 [facility] [id number] 17:31:00 Test Item Value Reference Range Interpretation Comments UA Protein (test code = UA Negative mg/dL Protein) [facility] [id number] 17:31:00 Test Item Value Reference Range Interpretation Comments UA Glucose (test code = UA Negative mg/dL Glucose) [facility] [id number] 17:31:00 Test Item Value Reference Range Interpretation Comments UA Bili (test code = Negative *NA*(07/23/19 UA Bili) 11:31 AM) [facility] AND [id number] 17:31:00 Test Item Value Reference Range Interpretation Comments UA Blood (test code = Negative (07/23/19 11:31 UA Blood) AM) [facility] AND [id number] 17:31:00 Test Item Value Reference Range Interpretation Comments UA Nitrite (test code Negative (07/23/19 = UA Nitrite) 11:31 AM) [facility] AND [id number] 17:31:00 Test Item Value Reference Range Interpretation Comments UA Leuk Est (test code Trace *ABN*(07/23/19 = UA Leuk Est) 11:31 AM) [facility] AND [id number] 17:31:00 Test Item Value Reference Range Interpretation Comments UA Sq Epi (test code = UA Sq Occasional /LPF Epi) [facility] AND [id number] 17:31:00 Test Item Value Reference Range Interpretation Comments UA WBC (test code = 2 See_Comment [Automa shelly message] The UA WBC) system which ge nerated this result transmit shelly reference range : <=5. The reference range was not used to interpr et this result as lisa l/abnormal. [facility] [id number] 17:31:00 Test Item Value Reference Range Interpretation Comments UA RBC (test code = no gt See_Comment [Automa shelly message] The UA RBC) system which ge nerated this result transmit shelly reference range : <=2. The reference range was not used to interpr et this result as lisa l/abnormal. [facility] [id number] 17:31:00 Test Item Value Reference Range Interpretation Comments UA Bacteria (test code = UA Occasional /HPF Bacteria) [facility] AND [id number] 17:31:00 Test Item Value Reference Range Interpretation Comments UA Mucus (test code = UA Mucus) [facility] /[facility]F [facility] [id number] 17:31:00 Test Item Value Reference Range Interpretation Comments UA Ketones (test code = UA Ketones) Negative [facility] [id number] 17:31:00 Test Item Value Reference Range Interpretation Comments UA Urobilinogen (test code = UA <=1.0 mg/dL 0.1-1.0 Urobilinogen) [facility] [id number] 17:31:00 Test Item Value Reference Range Interpretation Comments U Amph Scr (test code Negative *NA*(07/23/19 = U Amph Scr) 11:31 AM) [facility] [id number] 17:31:00 Test Item Value Reference Range Interpretation Comments U Kaylene Scr (test code Negative *NA*(07/23/19 = U Kaylene Scr) 11:31 AM) [facility] [id number] 17:31:00 Test Item Value Reference Range Interpretation Comments U Benzodiaz Scr (test Positive code = U Benzodiaz Scr) *ABN*(07/23/19 11:31 AM) [facility] [id number] 17:31:00 Test Item Value Reference Range Interpretation Comments U Cocaine Scr (test Positive *ABN*(07/23/19 code = U Cocaine Scr) 11:31 AM) [facility] [id number] 17:31:00 Test Item Value Reference Range Interpretation Comments U Cannab Scr (test Negative *NA*(07/23/19 code = U Cannab Scr) 11:31 AM) [facility] [id number] 17:31:00 Test Item Value Reference Range Interpretation Comments U Opiate Scr (test Negative *NA*(07/23/19 code = U Opiate Scr) 11:31 AM) [facility] [id number] 17:31:00 Test Item Value Reference Range Interpretation Comments U Phencyclidine Scr (test Negative code = U Phencyclidine *NA*(07/23/19 11:31 Scr) AM) [facility] [id number] 17:31:00 Test Item Value Reference Range Interpretation Comments UDS Note (test code = See Note (07/23/19 UDS Note) 11:31 AM) [facility] AND [id number] 17:31:00 Test Item Value Reference Range Interpretation Comments UA Color (test code = Yellow *NA*(07/23/19 UA Color) 11:31 AM) [facility] AND [id number] 17:31:00 Test Item Value Reference Range Interpretation Comments UA Turbidity (test code = Clear (07/23/19 UA Turbidity) 11:31 AM) [facility] AND [id number] 17:31:00 Test Item Value Reference Range Interpretation Comments UA Spec Grav (test code = UA Spec 1.015 1 Grav) [facility]2019-12-10 17:20:00 Test Item Value Reference Range Interpretation Comments Glucose Lvl (test code = Glucose Lvl) 92 70-99 [facility]2019-12-10 17:20:00 Test Item Value Reference Range Interpretation Comments BUN (test code = BUN) 12 7-22 [facility]2019-12-10 17:20:00 Test Item Value Reference Range Interpretation Comments Creatinine Lvl (test code = Creatinine 0.72 0.50-1.40 Lvl) [facility]2019-12-10 17:20:00 Test Item Value Reference Range Interpretation Comments Sodium Lvl (test code = Sodium Lvl) 144 135-145 [facility]2019-12-10 17:20:00 Test Item Value Reference Range Interpretation Comments Potassium Lvl (test code = Potassium 4.3 3.5-5.1 Lvl) [facility]2019-12-10 17:20:00 Test Item Value Reference Range Interpretation Comments Chloride Lvl (test code = Chloride Lvl) 109 95-109 [facility]2019-12-10 17:20:00 Test Item Value Reference Range Interpretation Comments CO2 (test code = CO2) 25 24-32 [facility]2019-12-10 17:20:00 Test Item Value Reference Range Interpretation Comments Calcium Lvl (test code = Calcium Lvl) 8.9 8.5-10.5 [facility]2019-12-10 17:20:00 Test Item Value Reference Range Interpretation Comments Total Protein (test code = Total 7.9 6.4-8.4 Protein) [facility]2019-12-10 17:20:00 Test Item Value Reference Range Interpretation Comments Albumin Lvl (test code = Albumin Lvl) 3.9 3.5-5.0 [facility]2019-12-10 17:20:00 Test Item Value Reference Range Interpretation Comments ALT (test code = ALT) 44 See_Comment [Auto mated message] The system which ge nerated this result transmit shelly reference range : <=65. The reference range was not used to interpr et this result as lisa l/abnormal. [facility]2019-12-10 17:20:00 Test Item Value Reference Range Interpretation Comments AST (test code = AST) 62 See_Comment [Auto mated message] The system which ge nerated this result transmit shelly reference range : <=37. The reference range was not used to interpr et this result as lisa l/abnormal. [facility]2019-12-10 17:20:00 Test Item Value Reference Range Interpretation Comments Alk Phos (test code = Alk Phos) 80 39-136 [facility]2019-12-10 17:20:00 Test Item Value Reference Range Interpretation Comments Bili Total (test code = Bili Total) 0.3 0.2-1.3 [facility]2019-12-10 17:20:00 Test Item Value Reference Range Interpretation Comments eGFR (test code = eGFR) 92 [facility]2019-12-10 17:20:00 Test Item Value Reference Range Interpretation Comments AGAP (test code = AGAP) 14.3 10.0-20.0 [facility]2019-12-10 17:20:00 Test Item Value Reference Range Interpretation Comments B/C Ratio (test code = B/C Ratio) 17 1 6-25 [place] [id number] 17:20:00 Test Item Value Reference Range Interpretation Comments Globulin (test code = Globulin) 4.0 2.7-4.2 [facility]2019-12-10 17:20:00 Test Item Value Reference Range Interpretation Comments A/G Ratio (test code = A/G Ratio) 1.0 1 0.7-1.6 [id number] 17:20:00 Test Item Value Reference Range Interpretation Comments Segs (test code = Segs) 35.9 45.0-75.0 [id number] 17:20:00 Test Item Value Reference Range Interpretation Comments Lymphocytes (test code = Lymphocytes) 46.6 20.0-40.0 [facility]2019-12-10 17:20:00 Test Item Value Reference Range Interpretation Comments Glucose Lvl (test code = Glucose Lvl) 92 70-99 [facility]aKoghcilLVNVXZIEPU1861-96-08 17:20:00 Test Item Value Reference Range Interpretation Comments Monocytes (test code = Monocytes) 10.9 2.0-12.0 [facility]2019-12-10 17:20:00 Test Item Value Reference Range Interpretation Comments BUN (test code = BUN) 12 7-22 [id number] 17:20:00 Test Item Value Reference Range Interpretation Comments Eosinophils (test code = 5.7 See_Comment [A utomated message] The Eosinophils) system which ge nerated this result tra nsmitted reference range : <=4.0. The reference r len was not used to int erpret this result as normal/abnormal . [id number] 17:20:00 Test Item Value Reference Range Interpretation Comments Basophils (test code = 0.9 See_Comment [Aut omated message] The Basophils) system which ge nerated this result tra nsmitted reference range : <=1.0. The reference r len was not used to int erpret this result as normal/abnormal . [facility]aXsclkijNZTWMDGQFF1859-74-43 17:20:00 Test Item Value Reference Range Interpretation Comments Neutrophils # (test code = Neutrophils 3.1 1.5-8.1 #) [id number] 17:20:00 Test Item Value Reference Range Interpretation Comments Lymphocytes # (test code = Lymphocytes 4.0 1.0-5.5 #) [facility]aRnjhblvCTWKUNDWES0302-51-33 17:20:00 Test Item Value Reference Range Interpretation Comments Monocytes # (test code 0.9 See_Comment [Aut omated message] The = Monocytes #) system which generated this result tra nsmitted reference range : <=0.8. The reference r len was not used to int erpret this result as normal/abnormal . [facility]aQhstswqVVWKIQPMPW1268-86-85 17:20:00 Test Item Value Reference Range Interpretation Comments Eosinophils # (test code 0.5 See_Comment [A utomated message] The = Eosinophils #) system whic h generated this result tra nsmitted reference range : <=0.5. The reference r len was not used to int erpret this result as normal/abnormal . [facility]2019-12-10 17:20:00 Test Item Value Reference Range Interpretation Comments Creatinine Lvl (test code = Creatinine 0.72 0.50-1.40 Lvl) [id number] 17:20:00 Test Item Value Reference Range Interpretation Comments Basophils # (test code 0.1 See_Comment [Aut omated message] The = Basophils #) system which generated this result tra nsmitted reference range : <=0.2. The reference r len was not used to int erpret this result as normal/abnormal . [facility]2019-12-10 17:20:00 Test Item Value Reference Range Interpretation Comments Sodium Lvl (test code = Sodium Lvl) 144 135-145 [facility]aUbpiuigTGCHDNVQZG5166-65-02 17:20:00 Test Item Value Reference Range Interpretation Comments WBC (test code = WBC) 8.6 3.7-10.4 [facility]2019-12-10 17:20:00 Test Item Value Reference Range Interpretation Comments Potassium Lvl (test code = Potassium 4.3 3.5-5.1 Lvl) [id number] 17:20:00 Test Item Value Reference Range Interpretation Comments RBC (test code = RBC) 4.56 4.20-5.40 [id number] 17:20:00 Test Item Value Reference Range Interpretation Comments Hgb (test code = Hgb) 13.8 12.0-16.0 [facility]2019-12-10 17:20:00 Test Item Value Reference Range Interpretation Comments Chloride Lvl (test code = Chloride Lvl) 109 95-109 [facility]aUzriuafQZCURSDGIF4753-72-26 17:20:00 Test Item Value Reference Range Interpretation Comments Hct (test code = Hct) 41.2 36.0-48.0 [facility]2019-12-10 17:20:00 Test Item Value Reference Range Interpretation Comments CO2 (test code = CO2) 25 24-32 [facility]aVczjrinOWOKYWKRGY7778-19-84 17:20:00 Test Item Value Reference Range Interpretation Comments MCV (test code = MCV) 90.3 80.0-98.0 [facility]2019-12-10 17:20:00 Test Item Value Reference Range Interpretation Comments Calcium Lvl (test code = Calcium Lvl) 8.9 8.5-10.5 [facility]2019-12-10 17:20:00 Test Item Value Reference Range Interpretation Comments Total Protein (test code = Total 7.9 6.4-8.4 Protein) [facility]2019-12-10 17:20:00 Test Item Value Reference Range Interpretation Comments Albumin Lvl (test code = Albumin Lvl) 3.9 3.5-5.0 [facility]aGsglgwuTPDQOEFMKZ9256-95-09 17:20:00 Test Item Value Reference Range Interpretation Comments MCH (test code = MCH) 30.2 pg 27.0-31.0 [facility]2019-12-10 17:20:00 Test Item Value Reference Range Interpretation Comments ALT (test code = ALT) 44 See_Comment [Auto mated message] The system which ge nerated this result transmit shelly reference range : <=65. The reference range was not used to interpr et this result as lisa l/abnormal. [facility]aBcmzrzgEJJUNZPXYD9213-95-58 17:20:00 Test Item Value Reference Range Interpretation Comments MCHC (test code = MCHC) 33.4 32.0-36.0 [facility]2019-12-10 17:20:00 Test Item Value Reference Range Interpretation Comments AST (test code = AST) 62 See_Comment [Auto mated message] The system which ge nerated this result transmit shelly reference range : <=37. The reference range was not used to interpr et this result as lisa l/abnormal. [facility]2019-12-10 17:20:00 Test Item Value Reference Range Interpretation Comments Alk Phos (test code = Alk Phos) 80 39-136 [facility]2019-12-10 17:20:00 Test Item Value Reference Range Interpretation Comments Bili Total (test code = Bili Total) 0.3 0.2-1.3 [place] 107269-12-10 17:20:00 Test Item Value Reference Range Interpretation Comments eGFR (test code = eGFR) 92 [id number] 17:20:00 Test Item Value Reference Range Interpretation Comments RDW (test code = RDW) 13.5 11.5-14.5 [facility]2019-12-10 17:20:00 Test Item Value Reference Range Interpretation Comments AGAP (test code = AGAP) 14.3 10.0-20.0 [id number] 17:20:00 Test Item Value Reference Range Interpretation Comments Platelet (test code = Platelet) 285 133-450 [facility]aChtcnsdFRQHQJCPDJ8552-24-28 17:20:00 Test Item Value Reference Range Interpretation Comments MPV (test code = MPV) 6.7 7.4-10.4 [facility]2019-12-10 17:20:00 Test Item Value Reference Range Interpretation Comments B/C Ratio (test code = B/C Ratio) 17 1 6-25 [facility]2019-12-10 17:20:00 Test Item Value Reference Range Interpretation Comments Globulin (test code = Globulin) 4.0 2.7-4.2 [facility]2019-12-10 17:20:00 Test Item Value Reference Range Interpretation Comments A/G Ratio (test code = A/G Ratio) 1.0 1 0.7-1.6 [facility]aLwhwskfNEOJJGXKXW1923-09-91 17:20:00 Test Item Value Reference Range Interpretation Comments Segs (test code = Segs) 35.9 45.0-75.0 [facility]aOcnhsenPHRXPFXERB8671-37-12 17:20:00 Test Item Value Reference Range Interpretation Comments Lymphocytes (test code = Lymphocytes) 46.6 20.0-40.0 [facility]aShtwnocHYEWIPEWAQ6785-15-87 17:20:00 Test Item Value Reference Range Interpretation Comments Monocytes (test code = Monocytes) 10.9 2.0-12.0 [facility]aJeyegqpBNUVQPXOQP9675-27-49 17:20:00 Test Item Value Reference Range Interpretation Comments Eosinophils (test code = 5.7 See_Comment [A utomated message] The Eosinophils) system which ge nerated this result tra nsmitted reference range : <=4.0. The reference r len was not used to int erpret this result as normal/abnormal . [facility]aXarvaeaCFBABVMRDQ8289-63-46 17:20:00 Test Item Value Reference Range Interpretation Comments Basophils (test code = 0.9 See_Comment [Aut omated message] The Basophils) system which ge nerated this result tra nsmitted reference range : <=1.0. The reference r len was not used to int erpret this result as normal/abnormal . [facility]aLagdgdsZEYTTOFRKJ5886-46-93 17:20:00 Test Item Value Reference Range Interpretation Comments Neutrophils # (test code = Neutrophils 3.1 1.5-8.1 #) [facility]aInhxieqRPTMJYGEJB9559-40-10 17:20:00 Test Item Value Reference Range Interpretation Comments Lymphocytes # (test code = Lymphocytes 4.0 1.0-5.5 #) [facility]aBjrhmeqXKEIMCFXWK7123-90-87 17:20:00 Test Item Value Reference Range Interpretation Comments Monocytes # (test code 0.9 See_Comment [Aut omated message] The = Monocytes #) system which generated this result tra nsmitted reference range : <=0.8. The reference r len was not used to int erpret this result as normal/abnormal . [facility]aDxrfojxIROCWZJSBZ1112-91-82 17:20:00 Test Item Value Reference Range Interpretation Comments Eosinophils # (test code 0.5 See_Comment [A utomated message] The = Eosinophils #) system whic h generated this result tra nsmitted reference range : <=0.5. The reference r len was not used to int erpret this result as normal/abnormal . [facility]aPledohlKUHFYAAQLJ1301-91-77 17:20:00 Test Item Value Reference Range Interpretation Comments Basophils # (test code 0.1 See_Comment [Aut omated message] The = Basophils #) system which generated this result tra nsmitted reference range : <=0.2. The reference r len was not used to int erpret this result as normal/abnormal . [facility]aLoiqbuiVJHDSYKVSM7151-98-91 17:20:00 Test Item Value Reference Range Interpretation Comments WBC (test code = WBC) 8.6 3.7-10.4 [facility]aWcfsvdeOYGNJPCVCE9606-67-42 17:20:00 Test Item Value Reference Range Interpretation Comments RBC (test code = RBC) 4.56 4.20-5.40 [facility]EltywcvHCLCDTTGON6085-03-54 17:20:00 Test Item Value Reference Range Interpretation Comments Hgb (test code = Hgb) 13.8 12.0-16.0 [facility] HospitalTmckdrmZCLOKOYHXZ7572-29-41 17:20:00 Test Item Value Reference Range Interpretation Comments Hct (test code = Hct) 41.2 36.0-48.0 [facility] HospitalSgnjbvrFWMGIJFXOX5070-26-52 17:20:00 Test Item Value Reference Range Interpretation Comments MCV (test code = MCV) 90.3 80.0-98.0 [facility] HospitalLvhygiaHDNOVEGKGS8920-42-22 17:20:00 Test Item Value Reference Range Interpretation Comments MCH (test code = MCH) 30.2 pg 27.0-31.0 [facility] HospitalRcygnjsQCPDCKITXR1755-43-86 17:20:00 Test Item Value Reference Range Interpretation Comments MCHC (test code = MCHC) 33.4 32.0-36.0 [facility] HospitalQepupadGFIKKFXVMC5330-82-57 17:20:00 Test Item Value Reference Range Interpretation Comments RDW (test code = RDW) 13.5 11.5-14.5 [facility] HospitalTdunkkxGSWSNNIBNV4134-33-47 17:20:00 Test Item Value Reference Range Interpretation Comments Platelet (test code = Platelet) 285 133-450 [facility] HospitalHiktpczOKBLHXPIFY4449-87-81 17:20:00 Test Item Value Reference Range Interpretation Comments MPV (test code = MPV) 6.7 7.4-10.4 [facility]: [id number] 20:19:14 Test Item Value Reference Range Interpretation Comments Culture: Urine (test code = No Growth Culture: Urine[facility] [id number] 20:19:14 Test Item Value Reference Range Interpretation Comments Culture: Urine (test code = No Growth Culture: Urine) [facility] [id number] 09:52:00 Test Item Value Reference Range Interpretation Comments Magnesium Lvl (test code = Magnesium 1.7 1.8-2.4 Lvl) [facility] [id number] 09:52:00 Test Item Value Reference Range Interpretation Comments eGFR (test code = eGFR) 96 [facility] [id number] 09:52:00 Test Item Value Reference Range Interpretation Comments Calcium Lvl (test code = Calcium Lvl) 8.8 8.5-10.5 [facility]2018-08-23 09:52:00 Test Item Value Reference Range Interpretation Comments Chloride Lvl (test code = Chloride Lvl) 106 95-109 [place] 107268-08-23 09:52:00 Test Item Value Reference Range Interpretation Comments CO2 (test code = CO2) 28 24-32 [place] 107268-08-23 09:52:00 Test Item Value Reference Range Interpretation Comments Potassium Lvl (test code = Potassium 3.6 3.5-5.1 Lvl) [place] 107268-08-23 09:52:00 Test Item Value Reference Range Interpretation Comments Creatinine Lvl (test code = Creatinine 0.70 0.50-1.40 Lvl) [facility]2018-08-23 09:52:00 Test Item Value Reference Range Interpretation Comments Sodium Lvl (test code = Sodium Lvl) 140 135-145 [facility]2018-08-23 09:52:00 Test Item Value Reference Range Interpretation Comments BUN (test code = BUN) 13 7-22 [facility]2018-08-23 09:52:00 Test Item Value Reference Range Interpretation Comments Glucose Lvl (test code = Glucose Lvl) 102 70-99 [facility]2018-08-23 09:52:00 Test Item Value Reference Range Interpretation Comments AGAP (test code = AGAP) 9.6 10.0-20.0 [facility]aXxyvnugSPYRFBAXRF5211-40-04 09:52:00 Test Item Value Reference Range Interpretation Comments PT (test code = PT) 13.0 s 12.0-14.7 [place] 882678-08-23 09:52:00 Test Item Value Reference Range Interpretation Comments INR (test code = INR) 0.98 1 0.85-1.17 [place] 882678-08-23 09:52:00 Test Item Value Reference Range Interpretation Comments PTT (test code = PTT) 29.2 s 22.9-35.8 [place] 882678-08-23 09:52:00 Test Item Value Reference Range Interpretation Comments D-Dimer (test code = D-Dimer) 0.29 [facility] HospitalNqxbhbvNHBNXPACNJ4075-69-40 09:52:00 Test Item Value Reference Range Interpretation Comments WBC (test code = WBC) 7.4 3.7-10.4 [facility] HospitalWfdqnwzBCNITUPUMC2614-25-76 09:52:00 Test Item Value Reference Range Interpretation Comments RBC (test code = RBC) 4.22 4.20-5.40 [facility] HospitalWtwizwoZCFLQIOAPA9143-47-51 09:52:00 Test Item Value Reference Range Interpretation Comments Platelet (test code = Platelet) 257 133-450 [facility] HospitalQqfeqejAHBUCQZIBG0694-27-30 09:52:00 Test Item Value Reference Range Interpretation Comments MPV (test code = MPV) 7.3 7.4-10.4 [facility] HospitalQrrjeepNQUARUGPJW5868-22-25 09:52:00 Test Item Value Reference Range Interpretation Comments MCV (test code = MCV) 88.4 80.0-98.0 [facility]aCffumcfMWDROEQKCF0518-45-85 09:52:00 Test Item Value Reference Range Interpretation Comments Hgb (test code = Hgb) 12.4 12.0-16.0 [facility] HospitalOsccetzLXMEBPPMPL2720-15-14 09:52:00 Test Item Value Reference Range Interpretation Comments Hct (test code = Hct) 37.3 36.0-48.0 [facility] HospitalNymcmbnOFTCUHTYJW2487-56-58 09:52:00 Test Item Value Reference Range Interpretation Comments RDW (test code = RDW) 13.8 11.5-14.5 [facility] HospitalWveywzbICKFLBLXNS8378-68-21 09:52:00 Test Item Value Reference Range Interpretation Comments MCHC (test code = MCHC) 33.3 32.0-36.0 [facility] CenterOmcelvrTKXMSIGCLF3863-48-78 09:52:00 Test Item Value Reference Range Interpretation Comments MCH (test code = MCH) 29.4 pg 27.0-31.0 [facility] CenterHzreoigXQFWODPNNI6345-89-95 09:52:00 Test Item Value Reference Range Interpretation Comments Lymphocytes (test code = Lymphocytes) 31.6 20.0-40.0 [facility] CenterCARDIAC [id number] 09:52:00 Test Item Value Reference Range Interpretation Comments Troponin-I (test code no gt See_Comment [Auto mated message] The = Troponin-I) system which g enerated this result transmit shelly reference range : <=0.40. The reference r len was not used to interpr et this result as lisa l/abnormal. [facility]aJrnhdiyHOHBEXOYCR6905-20-73 09:52:00 Test Item Value Reference Range Interpretation Comments Monocytes (test code = Monocytes) 10.5 2.0-12.0 [facility]2018-08-23 09:52:00 Test Item Value Reference Range Interpretation Comments Procalcitonin Lvl (test no gt See_Comment [Au tomated message] code = Procalcitonin Lvl) Th e system which generated this result transmitted ref erence range: <=0.10. The reference range was not used to interpr et this result as normal/abnormal . [facility]aEikatnqNVUMLDXIZZ2991-61-79 09:52:00 Test Item Value Reference Range Interpretation Comments Neutrophils # (test code = Neutrophils 3.6 1.5-8.1 #) [facility]2018-08-23 09:52:00 Test Item Value Reference Range Interpretation Comments Magnesium Lvl (test code = Magnesium 1.7 1.8-2.4 Lvl) [facility]aAnnsfyzKZECIGYXBI0859-99-25 09:52:00 Test Item Value Reference Range Interpretation Comments Eosinophils (test code = 8.0 See_Comment [A utomated message] The Eosinophils) system which ge nerated this result tra nsmitted reference range : <=4.0. The reference r len was not used to int erpret this result as normal/abnormal . [facility]aLgxbforUIKVUTQZPJ0058-74-54 09:52:00 Test Item Value Reference Range Interpretation Comments Basophils (test code = 0.7 See_Comment [Aut omated message] The Basophils) system which ge nerated this result tra nsmitted reference range : <=1.0. The reference r len was not used to int erpret this result as normal/abnormal . [facility]2018-08-23 09:52:00 Test Item Value Reference Range Interpretation Comments eGFR (test code = eGFR) 96 [facility]aChnacqrAYONWCXHZK8285-20-38 09:52:00 Test Item Value Reference Range Interpretation Comments Segs (test code = Segs) 49.2 45.0-75.0 [facility]aBxuonxpVOGZNWNQUJ2007-98-40 09:52:00 Test Item Value Reference Range Interpretation Comments Monocytes # (test code 0.8 See_Comment [Aut omated message] The = Monocytes #) system which generated this result tra nsmitted reference range : <=0.8. The reference r len was not used to int erpret this result as normal/abnormal . [facility]2018-08-23 09:52:00 Test Item Value Reference Range Interpretation Comments Calcium Lvl (test code = Calcium Lvl) 8.8 8.5-10.5 [id number] 09:52:00 Test Item Value Reference Range Interpretation Comments Eosinophils # (test code 0.6 See_Comment [A utomated message] The = Eosinophils #) system whic h generated this result tra nsmitted reference range : <=0.5. The reference r len was not used to int erpret this result as normal/abnormal . [facility]2018-08-23 09:52:00 Test Item Value Reference Range Interpretation Comments Chloride Lvl (test code = Chloride Lvl) 106 95-109 [id number] 09:52:00 Test Item Value Reference Range Interpretation Comments Lymphocytes # (test code = Lymphocytes 2.3 1.0-5.5 #) [facility]2018-08-23 09:52:00 Test Item Value Reference Range Interpretation Comments CO2 (test code = CO2) 28 24-32 [id number] 09:52:00 Test Item Value Reference Range Interpretation Comments Basophils # (test code 0.0 See_Comment [Aut omated message] The = Basophils #) system which generated this result tra nsmitted reference range : <=0.2. The reference r len was not used to int erpret this result as normal/abnormal . [facility]2018-08-23 09:52:00 Test Item Value Reference Range Interpretation Comments Potassium Lvl (test code = Potassium 3.6 3.5-5.1 Lvl) [facility] AND [id number] 09:52:00 Test Item Value Reference Range Interpretation Comments UA Leuk Est (test code Large *ABN*(04/05/18 = UA Leuk Est) 4:52 AM) [facility] AND [id number] 09:52:00 Test Item Value Reference Range Interpretation Comments UA WBC (test code = 34 See_Comment [Automa shelly message] The UA WBC) system which ge nerated this result transmit shelly reference range : <=5. The reference range was not used to interpr et this result as lisa l/abnormal. [facility] AND [id number] 09:52:00 Test Item Value Reference Range Interpretation Comments UA Sq Epi (test code = UA Sq Epi) Many /LPF [facility] AND [id number] 09:52:00 Test Item Value Reference Range Interpretation Comments UA RBC (test code = 5 See_Comment [Automa shelly message] The UA RBC) system which ge nerated this result transmit shelly reference range : <=2. The reference range was not used to interpr et this result as lisa l/abnormal. [facility] AND [id number] 09:52:00 Test Item Value Reference Range Interpretation Comments UA Ketones (test code = UA Negative mg/dL Ketones) [facility]2018-08-23 09:52:00 Test Item Value Reference Range Interpretation Comments Creatinine Lvl (test code = Creatinine 0.70 0.50-1.40 Lvl) [facility] AND [id number] 09:52:00 Test Item Value Reference Range Interpretation Comments UA Glucose (test code = UA Negative mg/dL Glucose) [facility]2018-08-23 09:52:00 Test Item Value Reference Range Interpretation Comments Sodium Lvl (test code = Sodium Lvl) 140 135-145 [facility] AND [id number] 09:52:00 Test Item Value Reference Range Interpretation Comments UA Bili (test code = Negative *NA*(04/05/18 UA Bili) 4:52 AM) [facility] AND [id number] 09:52:00 Test Item Value Reference Range Interpretation Comments UA Nitrite (test code Negative (04/05/18 4:52 = UA Nitrite) AM) [facility] AND [id number] 09:52:00 Test Item Value Reference Range Interpretation Comments UA Blood (test code = Small *ABN*(04/05/18 UA Blood) 4:52 AM) [facility]2018-08-23 09:52:00 Test Item Value Reference Range Interpretation Comments BUN (test code = BUN) 13 7-22 [facility] AND [id number] 09:52:00 Test Item Value Reference Range Interpretation Comments UA Turbidity (test code Moderate *ABN*(04/05/18 = UA Turbidity) 4:52 AM) [facility] [id number] 09:52:00 Test Item Value Reference Range Interpretation Comments Glucose Lvl (test code = Glucose Lvl) 102 70-99 [facility] AND [id number] 09:52:00 Test Item Value Reference Range Interpretation Comments UA Color (test code = Light Yellow UA Color) *NA*(04/05/18 4:52 AM) [facility] AND [id number] 09:52:00 Test Item Value Reference Range Interpretation Comments UA pH (test code = UA pH) 7.0 1 5.0-8.0 [facility]2018-08-23 09:52:00 Test Item Value Reference Range Interpretation Comments AGAP (test code = AGAP) 9.6 10.0-20.0 [facility] AND [id number] 09:52:00 Test Item Value Reference Range Interpretation Comments UA Spec Grav (test code = UA Spec 1.008 1 Grav) [id number] 09:52:00 Test Item Value Reference Range Interpretation Comments PT (test code = PT) 13.0 s 12.0-14.7 [facility] AND [id number] 09:52:00 Test Item Value Reference Range Interpretation Comments UA Protein (test code = UA Negative mg/dL Protein) [id number] 09:52:00 Test Item Value Reference Range Interpretation Comments INR (test code = INR) 0.98 1 0.85-1.17 [facility] AND [id number] 09:52:00 Test Item Value Reference Range Interpretation Comments UA Urobilinogen (test code = UA <=1.0 mg/dL 0.1-1.0 Urobilinogen) [id number] 09:52:00 Test Item Value Reference Range Interpretation Comments PTT (test code = PTT) 29.2 s 22.9-35.8 [facility] AND [id number] 09:52:00 Test Item Value Reference Range Interpretation Comments UA Bacteria (test code = UA Occasional /HPF Bacteria) [id number] 09:52:00 Test Item Value Reference Range Interpretation Comments D-Dimer (test code = D-Dimer) 0.29 [facility] [id number] 09:52:00 Test Item Value Reference Range Interpretation Comments UA Mucus (test code = UA Mucus) Few /LPF [facility] HospitalJbuozznEKWPCJXIGA2681-01-64 09:52:00 Test Item Value Reference Range Interpretation Comments WBC (test code = WBC) 7.4 3.7-10.4 [facility] [id number] 09:52:00 Test Item Value Reference Range Interpretation Comments Total CK (test code = Total CK) 256 12-191 [id number] 09:52:00 Test Item Value Reference Range Interpretation Comments RBC (test code = RBC) 4.22 4.20-5.40 [facility] HospitalDzfyknmMSVBFWXDTF6040-10-75 09:52:00 Test Item Value Reference Range Interpretation Comments Platelet (test code = Platelet) 257 133-450 [facility] [id number] 09:52:00 Test Item Value Reference Range Interpretation Comments Troponin-I (test code no gt See_Comment [Auto mated message] The = Troponin-I) system which g enerated this result transmit shelly reference range : <=0.40. The reference r len was not used to interpr et this result as lisa l/abnormal. [id number] 09:52:00 Test Item Value Reference Range Interpretation Comments MPV (test code = MPV) 7.3 7.4-10.4 [facility] [id number] 09:52:00 Test Item Value Reference Range Interpretation Comments Procalcitonin Lvl (test no gt See_Comment [Au tomated message] code = Procalcitonin Lvl) Th e system which generated this result transmitted ref erence range: <=0.10. The reference range was not used to interpr et this result as normal/abnormal . [facility]aLqdfxnyOEATKUBYHF2336-68-08 09:52:00 Test Item Value Reference Range Interpretation Comments MCV (test code = MCV) 88.4 80.0-98.0 [id number] 09:52:00 Test Item Value Reference Range Interpretation Comments Hgb (test code = Hgb) 12.4 12.0-16.0 [id number] 09:52:00 Test Item Value Reference Range Interpretation Comments Hct (test code = Hct) 37.3 36.0-48.0 [facility]aKfelqplFPXDTPPDUH3942-15-16 09:52:00 Test Item Value Reference Range Interpretation Comments RDW (test code = RDW) 13.8 11.5-14.5 [facility]aY[id number] 09:52:00 Test Item Value Reference Range Interpretation Comments MCHC (test code = MCHC) 33.3 32.0-36.0 [id number] 09:52:00 Test Item Value Reference Range Interpretation Comments MCH (test code = MCH) 29.4 pg 27.0-31.0 [id number] 09:52:00 Test Item Value Reference Range Interpretation Comments Lymphocytes (test code = Lymphocytes) 31.6 20.0-40.0 [id number] 09:52:00 Test Item Value Reference Range Interpretation Comments Monocytes (test code = Monocytes) 10.5 2.0-12.0 [facility]aKpruahaELFLHJVOIG0606-03-92 09:52:00 Test Item Value Reference Range Interpretation Comments Neutrophils # (test code = Neutrophils 3.6 1.5-8.1 #) [id number] 09:52:00 Test Item Value Reference Range Interpretation Comments Eosinophils (test code = 8.0 See_Comment [A utomated message] The Eosinophils) system which ge nerated this result tra nsmitted reference range : <=4.0. The reference r len was not used to int erpret this result as normal/abnormal . [id number] 09:52:00 Test Item Value Reference Range Interpretation Comments Basophils (test code = 0.7 See_Comment [Aut omated message] The Basophils) system which ge nerated this result tra nsmitted reference range : <=1.0. The reference r len was not used to int erpret this result as normal/abnormal . [place] [id number] 09:52:00 Test Item Value Reference Range Interpretation Comments Segs (test code = Segs) 49.2 45.0-75.0 [id number] 09:52:00 Test Item Value Reference Range Interpretation Comments Monocytes # (test code 0.8 See_Comment [Aut omated message] The = Monocytes #) system which generated this result tra nsmitted reference range : <=0.8. The reference r len was not used to int erpret this result as normal/abnormal . [id number] 09:52:00 Test Item Value Reference Range Interpretation Comments Eosinophils # (test code 0.6 See_Comment [A utomated message] The = Eosinophils #) system whic h generated this result tra nsmitted reference range : <=0.5. The reference r len was not used to int erpret this result as normal/abnormal . [id number] 09:52:00 Test Item Value Reference Range Interpretation Comments Lymphocytes # (test code = Lymphocytes 2.3 1.0-5.5 #) [id number] 09:52:00 Test Item Value Reference Range Interpretation Comments Basophils # (test code 0.0 See_Comment [Aut omated message] The = Basophils #) system which generated this result tra nsmitted reference range : <=0.2. The reference r len was not used to int erpret this result as normal/abnormal . [facility] AND [id number] 09:52:00 Test Item Value Reference Range Interpretation Comments UA Leuk Est (test code Large *ABN*(04/05/18 = UA Leuk Est) 4:52 AM) [facility] AND [id number] 09:52:00 Test Item Value Reference Range Interpretation Comments UA WBC (test code = 34 See_Comment [Automa shelly message] The UA WBC) system which ge nerated this result transmit shelly reference range : <=5. The reference range was not used to interpr et this result as lisa l/abnormal. [facility] AND [id number] 09:52:00 Test Item Value Reference Range Interpretation Comments UA Sq Epi (test code = UA Sq Epi) Many /LPF [facility] AND [id number] 09:52:00 Test Item Value Reference Range Interpretation Comments UA RBC (test code = 5 See_Comment [Automa shelly message] The UA RBC) system which ge nerated this result transmit shelly reference range : <=2. The reference range was not used to interpr et this result as lisa l/abnormal. [facility] AND [id number] 09:52:00 Test Item Value Reference Range Interpretation Comments UA Ketones (test code = UA Negative mg/dL Ketones) [facility] AND [id number] 09:52:00 Test Item Value Reference Range Interpretation Comments UA Glucose (test code = UA Negative mg/dL Glucose) [facility] AND [id number] 09:52:00 Test Item Value Reference Range Interpretation Comments UA Bili (test code = Negative *NA*(04/05/18 UA Bili) 4:52 AM) [facility] AND [id number] 09:52:00 Test Item Value Reference Range Interpretation Comments UA Nitrite (test code Negative (04/05/18 4:52 = UA Nitrite) AM) [facility] AND [id number] 09:52:00 Test Item Value Reference Range Interpretation Comments UA Blood (test code = Small *ABN*(04/05/18 UA Blood) 4:52 AM) [facility] AND [id number] 09:52:00 Test Item Value Reference Range Interpretation Comments UA Turbidity (test code Moderate *ABN*(04/05/18 = UA Turbidity) 4:52 AM) [facility] AND [id number] 09:52:00 Test Item Value Reference Range Interpretation Comments UA Color (test code = Light Yellow UA Color) *NA*(04/05/18 4:52 AM) [facility] AND [id number] 09:52:00 Test Item Value Reference Range Interpretation Comments UA pH (test code = UA pH) 7.0 1 5.0-8.0 [facility] AND [id number] 09:52:00 Test Item Value Reference Range Interpretation Comments UA Spec Grav (test code = UA Spec 1.008 1 Grav) [facility] AND [id number] 09:52:00 Test Item Value Reference Range Interpretation Comments UA Protein (test code = UA Negative mg/dL Protein) [facility] AND [id number] 09:52:00 Test Item Value Reference Range Interpretation Comments UA Urobilinogen (test code = UA <=1.0 mg/dL 0.1-1.0 Urobilinogen) [facility] AND [id number] 09:52:00 Test Item Value Reference Range Interpretation Comments UA Bacteria (test code = UA Occasional /HPF Bacteria) [facility] AND [id number] 09:52:00 Test Item Value Reference Range Interpretation Comments UA Mucus (test code = UA Mucus) Few /LPF [facility] [id number] 09:52:00 Test Item Value Reference Range Interpretation Comments Total CK (test code = Total CK) 256 12-191 [facility]
--- NOTE | 2022-08-24 16:09 | EDPHYS ---
Physician Documentation [facility] Name: Lucina Rosa Age: 62 yrs Sex: Female : 1960 Arrival Date: 08/24/2022 Time: 15:22 Bed IW2 Private MD: ED Physician Shefali Cuevas HPI: 08/24 17:48 This 62 yrs old Female presents to ER via Ambulatory with complaints of Knee Pain. kb 17:48 The patient presents with an injury, pain. Associated signs and symptoms: The patient kb has no apparent associated signs or symptoms. Treatment prior to arrival includes: no previous treatment. Severity of symptoms: At their worst the symptoms were mild, moderate, in the emergency department the symptoms are unchanged. The patient has experienced similar episodes in the past. The patient has not recently seen a physician. Pt reports chronic knee pain bilaterally. States she had MRI recently that showed she needed surgery, but her insurance changed so she is trying to find a new ortho. Also reports she cut her ankle 2 days ago and is having drainage from the wound. Historical: - Allergies: 16:01 Celebrex; aa5 16:01 Naproxen; aa5 16:01 Ultram; aa5 16:01 Aspirin; aa5 - PMHx: 16:01 Bipolar disorder; Hypertensive disorder; Schizophrenia; aa5 16:04 IBS; aa5 - Immunization history:: Adult Immunizations unknown. - Social history:: Smoking status: Patient reports the use of cigarette tobacco products, denies chronic smoking, but will smoke occasionally. ROS: 17:41 Constitutional: Negative for fever, chills, and weight loss. kb 17:41 MS/extremity: Positive for pain, of the right knee and left knee. 17:41 Skin: Positive for erythema, laceration(s), of the anterior aspect of right ankle, drainage. 17:41 All other systems are negative. Exam: 17:41 Constitutional: This is a well developed, well nourished patient who is awake, alert, kb and in no acute distress. Head/Face: Normocephalic, atraumatic. ENT: Moist Mucous membranes Cardiovascular: Regular rate and rhythm with a normal S1 and S2. No gallops, murmurs, or rubs. No pulse deficits. Respiratory: Respirations even and unlabored. No increased work of breathing. Talking in full sentences Abdomen/GI: Soft, non-tender. No distention MS/ Extremity: Pulses equal, no cyanosis. Neurovascular intact. Full, normal range of motion. Neuro: Awake and alert, GCS 15, oriented to person, place, time, and situation. Moves all extremities. Normal gait. Psych: Awake, alert, with orientation to person, place and time. Behavior, mood, and affect are within normal limits. 17:41 Skin: injury, laceration(s), the wound is approximately 3 cm(s), of the anterior aspect of right ankle, that can be described as without bleeding, drainage, surrounding erythema. Vital Signs: 16:00 BP 139 / 84; Pulse 76; Resp 16 S; Temp 97.8(TE); Pulse Ox 100% on R/A; aa5 MDM: 16:01 Patient medically screened. kb 17:42 Data reviewed: vital signs, nurses notes. kb 17:43 Differential diagnosis: strain, sprain, chronic knee pain, wound infection, laceration. kb I considered the following discharge prescriptions or medication management in the emergency department I discussed and recommended Over The Counter medications, Pain Medications: At this time, prescription pain medications are not recommended. Test considered but Not performed: X-ray: knee x-rays considered. Pain is chronic, pt had recent MRI of both knees that shows ligament injury with no bone involvement. Counseling: I had a detailed discussion with the patient and/or guardian regarding: the historical points, exam findings, and any diagnostic results supporting the discharge/admit diagnosis, the need for outpatient follow up, a family practitioner, a orthopedic surgeon, to return to the emergency department if symptoms worsen or persist or if there are any questions or concerns that arise at home. Administered Medications: 16:46 Drug: [place] (HYDROcodone-acetaminophen) (7.5 mg-325 mg) 1 tabs Route: PO; ss 16:47 Follow up: Response: Medication administered at discharge. ss 16:46 Drug: Bactrim (trimethoprim-sulfamethoxazole) (160 mg-800 mg (DS) 1 tablet Route: PO; ss 16:48 Follow up: Response: Medication administered at discharge. ss Disposition Summary: 08/24/22 16:09 Discharge Ordered Location: Home kb Condition: Stable kb Diagnosis - Pain in left knee kb - Pain in right knee kb - Local infection of the skin and subcutaneous tissue, unspecified kb Followup: kb - With: Emergency Department - When: As needed - Reason: Worsening of condition Followup: kb - With: Private Physician - When: 2 - 3 days - Reason: Recheck today's complaints, Continuance of care, Re-evaluation by your physician Discharge Instructions: - Discharge Summary Sheet kb - Wound Infection, Iyiu-jd-Vuwu kb - Acute Knee Pain, Adult, Vbwd-lf-Xjyv kb Forms: - Medication Reconciliation Form kb - Thank You Letter kb - Antibiotic Education kb - Prescription Opioid Use kb Prescriptions: - Bactrim DS 800-160 mg Oral Tablet - take 1 tablet by ORAL route every 12 hours for 10 days; 20 tablet; Refills: 0, kb Product Selection Permitted - orphenadrine citrate 100 mg Oral Tablet Sustained Release - take 1 tablet by ORAL route 2 times per day As needed; 20 tablet; Refills: 0, kb Product Selection Permitted Signatures: Estefany Owens, ROLL GRINDER-C Yana Palma, RN RN aa5 Leena Amezquita RN RN ss
--- NOTE | 2022-08-24 16:09 | ER ---
Nurse's Notes [facility] Name: Lucina Rosa Age: 62 yrs Sex: Female : 1960 Arrival Date: 08/24/2022 Time: 15:22 Bed IW2 Private MD: Diagnosis: Pain in left knee;Pain in right knee;Local infection of the skin and subcutaneous tissue, unspecified Presentation: 08/24 16:00 Chief complaint: Patient states: "I cut my right ankle on the bed post 2 days ago but I aa5 am also here for something for the pain on my knees, I have an MRI scheduled for my knees but I am hurting so bad". Coronavirus screen: At this time, the client does not indicate any symptoms associated with coronavirus-19. Ebola Screen: Patient denies travel to an Ebola-affected area in the 21 days before illness onset. Initial Sepsis Screen: Does the patient meet any 2 criteria? No. Patient's initial sepsis screen is negative. Does the patient have a suspected source of infection? No. Patient's initial sepsis screen is negative. Risk Assessment: Do you want to hurt yourself or someone else? Patient reports no desire to harm self or others. Onset of symptoms was August 2022. 16:00 Acuity: TORIBIO 4 aa5 16:00 Method Of Arrival: Ambulatory aa5 Historical: - Allergies: 16:01 Celebrex; aa5 16:01 Naproxen; aa5 16:01 Ultram; aa5 16:01 Aspirin; aa5 - PMHx: 16:01 Bipolar disorder; Hypertensive disorder; Schizophrenia; aa5 16:04 IBS; aa5 - Immunization history:: Adult Immunizations unknown. - Social history:: Smoking status: Patient reports the use of cigarette tobacco products, denies chronic smoking, but will smoke occasionally. Vital Signs: 16:00 BP 139 / 84; Pulse 76; Resp 16 S; Temp 97.8(TE); Pulse Ox 100% on R/A; aa5 ED Course: 15:22 Patient arrived in ED. as 15:34 Estefany Owens FNP-C [facility]. kb 15:34 Shefali Cuevas MD is Attending Physician. kb 16:00 Arm band placed on. aa5 16:01 Triage completed. aa5 16:48 No provider procedures requiring assistance completed. Patient did not have IV access ss during this emergency room visit. Administered Medications: 16:46 Drug: [place] (HYDROcodone-acetaminophen) (7.5 mg-325 mg) 1 tabs Route: PO; ss 16:47 Follow up: Response: Medication administered at discharge. ss 16:46 Drug: Bactrim (trimethoprim-sulfamethoxazole) (160 mg-800 mg (DS) 1 tablet Route: PO; ss 16:48 Follow up: Response: Medication administered at discharge. ss Outcome: 16:09 Discharge ordered by . kb 16:48 Discharged to home ambulatory. ss 16:48 Condition: good 16:48 Discharge instructions given to patient, Instructed on discharge instructions, follow up and referral plans. medication usage, Demonstrated understanding of instructions, follow-up care, medications, Prescriptions given X 2. 16:48 Patient left the ED. ss Signatures: Estefany Owens, VIRTUAL CLASSROOM MANAGER-C VIRTUAL CLASSROOM MANAGER-Isaura Barber Audri, RN RN aa5 Leena Amezquita RN RN ss
[2022-08-24] MEDS ORDERED: HYDROCODONE/APAP 7.5/325 MG TAB ONE (16:36)
[2022-08-24] MEDS ORDERED: SMZ./TMP. 800/160 MG TABLET ONE (16:36)
[2022-08-24 16:53] VITALS: BP 139/84; TEMP 97.8; O2SAT 100
== END 2022-08-24 16:48 | disposition home or self-care (01) ==
LOC: ER 15:20
DX: M25.562 Pain in left knee (principal); M25.561 Pain in right knee; L08.9 Local infection of the skin and subcutaneous tissue, unspecified; I10 Essential (primary) hypertension; F17.210 Nicotine dependence, cigarettes, uncomplicated; Z88.5 Allergy status to narcotic agent; Z88.6 Allergy status to analgesic agent